=== PATIENT | male | born 1940 | race African-American/Black ===

== ENCOUNTER 2017-07-17 19:24 | Emergency (ER) | payer MEDICARE, OTHER ==
[~2017-07-17] VITALS: Ht 177.8 cm; Wt 59.0 kg
[~2017-07-17 19:24] MED LIST: ACETAMINOPHEN-H1 TA2 PO; ADULT LOW DOSE81 MG PO; AMITRIPTYLINE25 MG PO; ASPIRIN 325MG325 MG PO; BACLOFEN 10MG T10 MG PO; CARBIDOPA AND L1 TA1 PO; CARBIDOPA/LE1 TABLE2 PO; CELEBREX200 MG PO; CITALOPRAM HYDR10 MG PO; DIABETA5 MG PO; DICLOFENAC SODI75 M2 PO; DICLOFENAC SODI75 M3 PO; ELIQUIS5 MG PO; FAMVIR500 MG PO; FERROUS SULFAT325 M2 PO; FINASTERIDE5 M1 PO; FLOMAX 0.4MG C0.4 MG PO; GABAPENTIN 400400 M1 PO; GABAPENTIN 600600 MG PO; GABAPENTIN300 MG PO; HCTZ/TRIAMTEREN1 CAP PO; HYDROCHLOROTHIA25 M1 PO; IMODIUM A-D2 M3 PO; KCL 10% 2020 MEQ/15 NG; KCL 10% 2020 MEQ/15 PO; LASIX 20MG. TAB20 MG PO; LASIX20 MG PO; LEVEMIR FLEX100 U/ML SC; LIPITOR80 MG PO; LOTREL1 CAP PO; LOVENOX 12120 MG/0.8 SC; METFORMIN ER500 MG PO; METOPROLOL SUCC25 M1 PO; METOPROLOL SUCC25 M2 PO; NEURONTIN600 MG PO; NITROLINGU0.4 MG/ACT SL; NORCO 325 MG-51 TAB PO; OMEPRAZOLE40 MG PO; ONDANSETRON 4MG4 MG PO; PLAVIX75 MG PO; POTASSIUM CHLO20 ME2 PO; QUETIAPINE FUMA25 M1 PO; ROSUVASTATIN CA20 MG PO; SYNTHROID0.112 MG PO; TERAZOSIN5 MG PO; TRAMADOL 50MG T50 MG PO; TRIAMTERENE AND1 TAB PO; VESICARE5 MG PO; VICODIN 5/500 T1 TAB PO; VITAMIN B121000 MCG PO; VITAMIN B122500 MC1 PO; VITAMIN D1000 IU PO; [UNRECOGNIZED DRUG - CODE] PO
--- OUTSIDE RECORDS SUMMARY | 2017-07-17 19:52 | External Medical Summary Rpt | CCD ---
Author Author , [facility]IEZER Organization [facility]IE[facility]ER Address Unknown Phone [email or web address] Care Team Providers Care Critical Care Paramedic Name Role Phone Suzanne SIMON, Unavailable Unavailable Suzanne Gabriel MD, Unavailable Unavailable Adelfo Gabriel MD Purpose Continuity of Care Document - 05-09-2013 through 2016 Problems Code Diagnosis DOS Provider Status 244.9 Hypothyroid [facility] 272.4 Hyperlipide [facility] 276.8 Hypokalemia [facility] 288.8 Leukocytosi [facility] 401.1 Benign [place] [facility] hypertensio [facility] n [id number] Diabetes [place] mellitus [facility] type 2 [facility] [id number] Active [facility] 593.9 Renal [place] impairment [facility] 600.01 [facility]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 [facility] with outflow obstruction [id number] Chronic [facility] D64.9 ANEMIA, UNSPECIFIED 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 51 13 er 12 5 5 Ac MG ti ve TA BL ET OD T Po 00 08 2 No ta 24 -1 ss 50 4- Lo iu 05 20 ng m 80 13 er Ch 1 lo Ac ri ti de ve 20 ME Q Ta bl e PO 00 08 0 No TA 40 -1 SS 97 4- Lo IU 07 20 ng M 52 13 er CL 6 Ac 20 ti ve ME Q/ 10 0 ML SO L IN 00 08 2 No VA 00 -1 NZ 63 1- Lo 1 84 20 ng 57 13 er GM 1 Ac AD ti D- ve VA NT AG E AL SO 00 08 2 No DI 40 -1 UM 97 1- Lo 10 20 ng CH 16 13 er LO 6 RI Ac DE ti ve 0. 9% SO LN AM 51 08 5 No LO 07 -1 DI 90 1- Lo PI 45 20 ng NE 22 13 er 0 BE Ac SY ti LA ve TE 10 MG TA B LO 00 08 5 No VE 07 -1 NO 50 1- Lo X 62 20 ng 40 04 13 er 1 MG Ac /0 ti .4 ve ML SY RI NG E HY [address] 73 -1 OC 90 1- Lo HL 12 20 ng OR 81 13 er OT 0 HI Ac AZ ti ID ve E 25 MG TA B TO 00 08 5 No MT 18 -1 OL 61 1- Lo 08 20 ng XL 83 13 er 9 25 Ac ti MG ve TA BL ET IN 00 08 1 No VA 00 -1 NZ 63 0- Lo 1 84 20 ng 57 13 er GM 1 Ac AD ti D- ve VA NT AG E AL Mo 00 08 6 No rp 40 -1 hi 91 0- Lo ne 25 20 ng 83 13 er 4M 0 G/ Ac Ml ti ve Sy ri ng e FS 08 6 No -1 BL 0- Lo OO 20 ng D 13 er SOOD GA Ac R ti ve LA [address] 40 -1 AT 97 0- Lo ED 95 20 ng 30 13 er RI 9 NG Ac ER ti S ve IN JE CT IO N SO 00 08 6 No DI 40 -1 UM 97 0- Lo 98 20 ng CH 30 13 er LO 9 RI Ac DE ti ve 0. 9% SO DORIS TI ON AM 51 08 1 No LO 07 -0 DI 90 9- Lo PI 45 20 ng NE 22 13 er 0 BE Ac SY ti LA ve TE 10 MG TA B CE 00 08 1 No LE 02 -0 BR 51 9- Lo EX 52 20 ng 03 13 er 10 4 0 Ac MG ti ve CA PS UL E HY [address] 73 -0 OC 90 9- Lo HL 12 20 ng OR 81 13 er OT 0 HI Ac AZ ti ID ve E 25 MG TA B SY 00 08 1 No NT 07 -0 HR 49 9- Lo OI 29 20 ng D 69 13 er 11 0 2 Ac MC ti G ve TA BL ET TO 00 08 1 No MT 18 -0 OL 61 9- Lo 08 20 ng XL 83 13 er 9 25 Ac ti MG ve TA BL ET LO 00 08 1 No VE 07 -0 NO 50 9- Lo X 62 20 ng 40 04 13 er 1 MG Ac /0 ti .4 ve ML SY RI NG E FS 08 1 No -0 BL 9- Lo OO 20 ng D 13 er SOOD GA Ac R ti ve LA [address] 40 -0 AT 97 8- Lo ED 95 20 ng 30 13 er RI 9 NG Ac ER ti S ve IN JE CT IO N SO 00 08 2 No DI 40 -0 UM 97 8- Lo 98 20 ng CH 30 13 er LO 9 RI Ac DE ti ve 0. 9% SO DORIS TI ON Sa 63 08 1 No li 80 -0 ne 70 8- Lo 10 20 ng Fl 07 13 er us 5 h Ac 10 ti ML ve Sy ri ng e ON 00 08 0 No DA 64 -0 NS 16 8- Lo ET 08 20 ng RO 02 13 er N 5 HC Ac L ti 4 ve MG /2 ML AL Sa 63 08 1 No li 80 -0 ne 70 8- Lo 10 20 ng Fl 07 13 er us 5 h Ac 10 ti ML ve Sy ri ng e Mo 00 08 0 No rp 40 -0 hi 91 8- Lo ne 26 20 ng 06 13 er 8M 9 G/ Ac Ml ti ve Sy ri ng e Mo 00 08 0 No rp 40 -0 hi 91 8- Lo ne 26 20 ng 06 13 er 8M 9 G/ Ac Ml ti ve Sy ri ng e OX 00 08 0 No YC 40 -0 OD 60 8- Lo ON 51 20 ng E- 26 13 er AC 2 ET Ac AM ti IN ve OP HE N 5- 32 5 Mo 00 08 0 No rp 40 -0 hi 91 8- Lo ne 26 20 ng 06 13 er 8M 9 G/ Ac Ml ti ve Sy ri ng e Mo 00 08 0 No rp 40 -0 hi 91 8- Lo ne 25 20 ng 83 13 er 4M 0 G/ Ac Ml ti ve Sy ri ng e AM 51 08 2 No IT 07 -0 RI 90 8- Lo PT 10 20 ng YL 72 13 er IN 0 E Ac HC ti L ve 25 MG TA B LI 00 08 2 No PI 07 -0 TO 10 8- Lo R 15 20 ng 40 74 13 er 0 MG Ac ti TA ve BL ET Ga 68 08 2 No ba 08 -0 pe 40 8- Lo nt 08 20 ng in 00 13 er 1 30 Ac 0M ti G ve Ca ps ul e TA 51 08 2 No MS 07 -0 UL 90 8- Lo OS 29 20 ng IN 42 13 er 0 HC Ac L ti 0. ve 4 MG CA PS UL E TE 51 08 2 No RA 07 -0 ZO 90 8- Lo SI 93 20 ng N 82 13 er 5 0 MG Ac ti CA ve PS UL E HY [address] 40 -0 OM 91 8- Lo OR 31 20 ng PH 23 13 er ON 0 E Ac 2 ti MG ve /M L CA RP UJ CT Vital Signs 05-17-2013 12:36 Name Value Interpretat Reference Comment ion Range Body 98.0 [degF] Temperature BP 68 mm[Hg] Diastolic BP Systolic 118 mm[Hg] Heart 80 /min Rate/Pulse Respiratory 18 /min Rate 05-17-2013 08:00 Name Value Interpretat Reference Comment ion Range O2% 96 % 05-11-2013 15:32 Name Value Interpretat Reference Comment ion Range Weight 85.843 kg Measured 05-09-2013 19:03 Name Value Interpretat Reference Comment ion Range Height 180.34 cm 05-09-2013 15:15 Name Value Interpretat Reference Comment ion Range Body 97.8 [degF] Temperature BP 67 mm[Hg] Diastolic BP Systolic 150 mm[Hg] Heart 58 /min Rate/Pulse O2% 100 % Respiratory 18 /min Rate Weight 0 [oz_av] Measured Results Labs Lab Lab Date Result Refere Interp Status Commen Order Detail nces retati t Range on Differential panel, method unspecified - (03-20-2017 13:45) LYMPH 34 % 10% - Normal complet 017 50% ed 13:45 Platele NORMAL complet ts 017 ed [Presen 13:45 ce] in Blood by Light microsc opy Erythro NORMAL complet cyte 017 ed morphol 13:45 ogy finding [Identi fier] in Blood Hemoglobin A1c in Blood (03-20-2017 13:45) Hemoglo 5.1 % 0.0% Normal complet bin A1c 017 - ed in 13:45 7.0% Blood Glucose BldC Glucomtr-mCnc (05-17-2013 06:45) Glucose 106 70-110 complet BldC 013 mg/dl ed Glucomt 06:45 r-mCnc Glucose BldC Glucomtr-mCnc (05-16-2013 20:32) Glucose 129 70-110 complet BldC 013 mg/dl ed Glucomt 20:32 r-mCnc Glucose BldC Glucomtr-mCnc (05-16-2013 16:41) Glucose 111 70-110 complet BldC 013 mg/dl ed Glucomt 16:41 r-mCnc Glucose BldC Glucomtr-mCnc (05-16-2013 11:30) Glucose 96 70-110 complet BldC 013 mg/dl ed Glucomt 11:30 r-mCnc Glucose BldC Glucomtr-nc (05-16-2013 06:54) Glucose 101 70-110 complet BldC 013 mg/dl ed Glucomt 06:54 r-mCnc BASIC METABOLIC PANEL (05-16-2013 06:46) Glucose 103 74-106 complet 013 mg/dL ed Bld-mCn 06:46 c BUN 15 7-18 complet Bld-mCn 013 mg/dL ed c 06:46 Creat 1.0 0.8-1.3 complet SerPl-m 013 mg/dL ed Cnc 06:46 ESTIMAT 82 50-200 complet ED 013 ML/MIN ed CREATIN 06:46 INE CLEARAN CE GFR 74 Greater complet (ESTIMA 013 ML/MIN than ed NYA) 06:46 60 Sodium 140 136-145 complet SerPl-s 013 mmoL/L ed Cnc 06:46 Potassi 3.7 3.5-5.1 complet um 013 mmoL/L ed SerPl-s 06:46 Cnc Chlorid 103 98-107 complet e 013 mmoL/L ed SerPl-s 06:46 Cnc CO2 34 21.0-32 complet SerPl-s 013 mmoL/L .0 ed Cnc 06:46 Calcium 08-15-2 7.9 8.5-10. complet 013 mg/dL 1 ed SerPl-m 06:46 Cnc CBC with AUTO DIFF (05-16-2013 06:46) WBC # 08-15-2 6.4 4.8-10. complet Bld 013 K/MM3 8 ed Auto 06:46 RBC # 08-15-2 3.44 4.6-6.2 complet Bld 013 M/mm3 ed Auto 06:46 Hgb 08-15-2 10.7 14.1-18 complet Bld-mCn 013 g/dL .0 ed c 06:46 Hct Fr 08-15-2 32.0 % 42.0-52 complet Bld 013 .0 ed 06:46 MCV RBC 08-15-2 93.1 fl 82.2-97 complet 013 .8 ed 06:46 MCH RBC 08-15-2 31.0 pg 27-31.2 complet Qn 013 ed Auto 06:46 MEAN 08-15-2 33.3 31.8-35 complet CORPUSC 013 g/dl .4 ed ULAR 06:46 HGB CONC RDW RBC 08-15-2 14.8 % 11.5-17 complet Auto 013 .5 ed 06:46 Platele 08-15-2 208 142-424 complet t Bld 013 K/mm3 ed Ql 06:46 Manual MEAN 08-15-2 8.0 fl 7.4-10. complet PLATELE 013 4 ed T 06:46 VOLUME Granulo 08-15-2 71.6 % 37.0-80 complet cytes 013 .0 ed Fr Bld 06:46 Auto LYMPH % 08-15-2 19.0 % 10-50 complet 013 ed 06:46 Monocyt 08-15-2 7.1 % 1.7-9.3 complet es Fr 013 ed Bld 06:46 Auto Eosinop 08-15-2 2.1 % 0.1-12. complet hil Fr 013 0 ed Bld 06:46 Auto Basophi 08-15-2 0.3 % 0.1-2.0 complet ls Fr 013 ed Bld 06:46 Auto Granulo 08-15-2 4.5 1.3-8.0 complet cytes # 013 K/mm3 ed Bld 06:46 Auto Lymphoc 05-16-2 1.2 0.7-4.5 complet ytes Fr 013 K/mm3 ed Bld 06:46 Auto Monocyt 15-2 0.5 0.1-1.0 complet es # 013 K/mm3 ed Bld 06:46 Auto Eosinop 15-2 0.1 0.0-0.4 complet hil # 013 K/mm3 ed Bld 06:46 Auto Basophi 05-16-2 0.0 0-0.2 complet ls # 013 K/MM3 ed Bld 06:46 Auto Glucose BldC Glucomtr-mCnc (05-15-2013 21:25) Glucose 05-15-2 127 70-110 complet BldC 013 mg/dl ed Glucomt 21:25 r-mCnc Glucose BldC Glucomtr-nc (05-15-2013 16:50) Glucose 05-15- 122 70-110 complet BldC 013 mg/dl ed Glucomt 16:50 r-mCnc Glucose BldC Glucomtr-nc (05-15-2013 12:15) Glucose 05-15-2 151 70-110 complet BldC 013 mg/dl ed Glucomt 12:15 r-mCnc Glucose BldC Glucomtr-mCnc (05-15-2013 06:26) Glucose 05-15-2 102 70-110 complet BldC 013 mg/dl ed Glucomt 06:26 r-nc BASIC METABOLIC PANEL (05-15-2013 06:20) Glucose 05-15-2 110 74-106 complet 013 mg/dL ed Bld-mCn 06:20 c BUN 19 7-18 complet Bld-mCn 013 mg/dL ed c 06:20 Creat 1.1 0.8-1.3 complet SerPl-m 013 mg/dL ed Cnc 06:20 ESTIMAT 75 50-200 complet ED 013 ML/MIN ed CREATIN 06:20 INE CLEARAN CE GFR 66 Greater complet (ESTIMA 013 ML/MIN than ed NYA) 06:20 60 Sodium 141 136-145 complet SerPl-s 013 mmoL/L ed Cnc 06:20 Potassi 3.0 3.5-5.1 complet um 013 mmoL/L ed SerPl-s 06:20 Cnc Chlorid 14-2 103 98-107 complet e 013 mmoL/L ed SerPl-s 06:20 Cnc CO2 14-2 32 21.0-32 complet SerPl-s 013 mmoL/L .0 ed Cnc 06:20 Calcium 14-2 8.0 8.5-10. complet 013 mg/dL 1 ed SerPl-m 06:20 Cnc CBC with AUTO DIFF (05-15-2013 06:20) WBC # 08-14-2 8.2 4.8-10. complet Bld 013 K/MM3 8 ed Auto 06:20 RBC # 08-14-2 3.65 4.6-6.2 complet Bld 013 M/mm3 ed Auto 06:20 Hgb -14-2 11.1 14.1-18 complet Bld-mCn 013 g/dL .0 ed c 06:20 Hct Fr 05-15-2 33.5 % 42.0-52 complet Bld 013 .0 ed 06:20 MCV RBC 05-15-2 91.8 fl 82.2-97 complet 013 .8 ed 06:20 MCH RBC 14-2 30.4 pg 27-31.2 complet Qn 013 ed Auto 06:20 MEAN 14-2 33.1 31.8-35 complet CORPUSC 013 g/dl .4 ed ULAR 06:20 HGB CONC RDW RBC 05-15-2 14.2 % 11.5-17 complet Auto 013 .5 ed 06:20 Platele 05-15-2 215 142-424 complet t Bld 013 K/mm3 ed Ql 06:20 Manual MEAN 14-2 8.2 fl 7.4-10. complet PLATELE 013 4 ed T 06:20 VOLUME Granulo -14-2 77.6 % 37.0-80 complet cytes 013 .0 ed Fr Bld 06:20 Auto LYMPH % -14-2 12.3 % 10-50 complet 013 ed 06:20 Monocyt -14-2 9.0 % 1.7-9.3 complet es Fr 013 ed Bld 06:20 Auto Eosinop -14-2 0.9 % 0.1-12. complet hil Fr 013 0 ed Bld 06:20 Auto Basophi 08-14-2 0.2 % 0.1-2.0 complet ls Fr 013 ed Bld 06:20 Auto Granulo 08-14-2 6.4 1.3-8.0 complet cytes # 013 K/mm3 ed Bld 06:20 Auto Lymphoc 08-14-2 1.0 0.7-4.5 complet ytes Fr 013 K/mm3 ed Bld 06:20 Auto Monocyt 08-14-2 0.7 0.1-1.0 complet es # 013 K/mm3 ed Bld 06:20 Auto Eosinop 08-14-2 0.1 0.0-0.4 complet hil # 013 K/mm3 ed Bld 06:20 Auto Basophi 08-14-2 0.0 0-0.2 complet ls # 013 K/MM3 ed Bld 06:20 Auto Glucose BldC Glucomtr-nc (05-14-2013 20:33) Glucose 05-14-2 150 70-110 complet BldC 013 mg/dl ed Glucomt 20:33 r-mCnc Glucose BldC Glucomtr-nc (05-14-2013 16:31) Glucose 154 70-110 complet BldC 013 mg/dl ed Glucomt 16:31 r-mCnc Glucose BldC Glucomtr-[facility] (05-14-2013 11:53) Glucose 05-14-2 126 70-110 complet BldC 013 mg/dl ed Glucomt 11:53 r-mCnc Glucose BldC Glucomtr-[facility] (05-14-2013 06:59) Glucose 05-14-2 114 70-110 complet BldC 013 mg/dl ed Glucomt 06:59 r-mCnc Glucose BldC Glucomtr-nc (05-13-2013 20:31) Glucose 05-13- 71 70-110 complet BldC 013 mg/dl ed Glucomt 20:31 r-mCnc Glucose BldC Glucomtr-nc (05-13-2013 16:52) Glucose 05-13-2 89 70-110 complet BldC 013 mg/dl ed Glucomt 16:52 r-mCnc Glucose BldC Glucomtr-[facility] (05-13-2013 11:45) Glucose 05-13-2 99 70-110 complet BldC 013 mg/dl ed Glucomt 11:45 r-nc Glucose BldC Glucomtr-nc (05-13-2013 06:38) Glucose 98 70-110 complet BldC 013 mg/dl ed Glucomt 06:38 r-nc Glucose BldC Glucomtr-nc (05-12-2013 20:23) Glucose 111 70-110 complet BldC 013 mg/dl ed Glucomt 20:23 r-nc Glucose BldC Glucomtr-nc (05-12-2013 16:36) Glucose 118 70-110 complet BldC 013 mg/dl ed Glucomt 16:36 r-[facility] Glucose BldC Glucomtr-[facility] (05-12-2013 11:50) Glucose 152 70-110 complet BldC 013 mg/dl ed Glucomt 11:50 r-[facility] Glucose BldC Glucomtr-[facility] (05-12-2013 06:52) Glucose 183 70-110 complet BldC 013 mg/dl ed Glucomt 06:52 r-[facility] BASIC METABOLIC PANEL (05-12-2013 06:30) Glucose 184 74-106 complet 013 mg/dL ed Bld-mCn 06:30 c BUN 25 7-18 complet Bld-mCn 013 mg/dL ed c 06:30 Creat 1.3 0.8-1.3 complet SerPl-m 013 mg/dL ed Cnc 06:30 ESTIMAT 63 50-200 complet ED 013 ML/MIN ed CREATIN 06:30 INE CLEARAN CE GFR 54 Greater complet (ESTIMA 013 ML/MIN than ed NYA) 06:30 60 Sodium 138 136-145 complet SerPl-s 013 mmoL/L ed Cnc 06:30 Potassi 3.7 3.5-5.1 complet um 013 mmoL/L ed SerPl-s 06:30 Cnc Chlorid 104 98-107 complet e 013 mmoL/L ed SerPl-s 06:30 Cnc CO2 27 21.0-32 complet SerPl-s 013 mmoL/L .0 ed Cnc 06:30 Calcium 08-11-2 7.9 8.5-10. complet 013 mg/dL 1 ed SerPl-m 06:30 Cnc CBC with AUTO DIFF (05-12-2013 06:30) WBC # 08-11-2 11.0 4.8-10. complet Bld 013 K/MM3 8 ed Auto 06:30 RBC # 08-11-2 3.74 4.6-6.2 complet Bld 013 M/mm3 ed Auto 06:30 Hgb 08-11-2 11.4 14.1-18 complet Bld-mCn 013 g/dL .0 ed c 06:30 Hct Fr 11-2 34.4 % 42.0-52 complet Bld 013 .0 ed 06:30 MCV RBC -11-2 92.0 fl 82.2-97 complet 013 .8 ed 06:30 MCH RBC 11-2 30.5 pg 27-31.2 complet Qn 013 ed Auto 06:30 MEAN 11-2 33.2 31.8-35 complet CORPUSC 013 g/dl .4 ed ULAR 06:30 HGB CONC RDW RBC 11-2 13.9 % 11.5-17 complet Auto 013 .5 ed 06:30 Platele -11-2 119 142-424 complet t Bld 013 K/mm3 ed Ql 06:30 Manual MEAN 11-2 9.2 fl 7.4-10. complet PLATELE 013 4 ed T 06:30 VOLUME Granulo -11-2 86.8 % 37.0-80 complet cytes 013 .0 ed Fr Bld 06:30 Auto LYMPH % -11-2 6.0 % 10-50 complet 013 ed 06:30 Monocyt 08-11-2 7.1 % 1.7-9.3 complet es Fr 013 ed Bld 06:30 Auto Eosinop 08-11-2 0.0 % 0.1-12. complet hil Fr 013 0 ed Bld 06:30 Auto Basophi 08-11-2 0.0 % 0.1-2.0 complet ls Fr 013 ed Bld 06:30 Auto Granulo 08-11-2 9.6 1.3-8.0 complet cytes # 013 K/mm3 ed Bld 06:30 Auto Lymphoc 08-11-2 0.7 0.7-4.5 complet ytes Fr 013 K/mm3 ed Bld 06:30 Auto Monocyt 0.8 0.1-1.0 complet es # 013 K/mm3 ed Bld 06:30 Auto Eosinop 0.0 0.0-0.4 complet hil # 013 K/mm3 ed Bld 06:30 Auto Basophi 0.0 0-0.2 complet ls # 013 K/MM3 ed Bld 06:30 Auto Glucose BldC Glucomtr-mCnc (05-11-2013 20:13) Glucose 175 70-110 complet BldC 013 mg/dl ed Glucomt 20:13 r-mCnc Glucose BldC Glucomtr-mCnc (05-11-2013 12:20) Glucose 198 70-110 complet BldC 013 mg/dl ed Glucomt 12:20 r-mCnc Glucose BldC Glucomtr-mCnc (05-11-2013 06:09) Glucose 165 70-110 complet BldC 013 mg/dl ed Glucomt 06:09 r-mCnc BASIC METABOLIC PANEL (05-11-2013 06:00) Glucose 178 74-106 complet 013 mg/dL ed Bld-mCn 06:00 c BUN 26 7-18 complet Bld-mCn 013 mg/dL ed c 06:00 Creat 1.4 0.8-1.3 complet SerPl-m 013 mg/dL ed Cnc 06:00 ESTIMAT 59 50-200 complet ED 013 ML/MIN ed CREATIN 06:00 INE CLEARAN CE GFR 50 Greater complet (ESTIMA 013 ML/MIN than ed NYA) 06:00 60 Sodium 135 136-145 complet SerPl-s 013 mmoL/L ed Cnc 06:00 Potassi 4.7 3.5-5.1 complet um 013 mmoL/L ed SerPl-s 06:00 Cnc Chlorid 99 98-107 complet e 013 mmoL/L ed SerPl-s 06:00 Cnc CO2 24 21.0-32 complet SerPl-s 013 mmoL/L .0 ed Cnc 06:00 Calcium -10-2 8.6 8.5-10. complet 013 mg/dL 1 ed SerPl-m 06:00 Cnc CBC with AUTO DIFF (05-11-2013 06:00) WBC # 08-10-2 16.7 4.8-10. complet Bld 013 K/MM3 8 ed Auto 06:00 RBC # 08-10-2 5.02 4.6-6.2 complet Bld 013 M/mm3 ed Auto 06:00 Hgb -10-2 15.6 14.1-18 complet Bld-mCn 013 g/dL .0 ed c 06:00 Hct Fr 05-11-2 46.1 % 42.0-52 complet Bld 013 .0 ed 06:00 MCV RBC 10-2 91.7 fl 82.2-97 complet 013 .8 ed 06:00 MCH RBC 05-11- 31.2 pg 27-31.2 complet Qn 013 ed Auto 06:00 MEAN 05-11-2 34.0 31.8-35 complet CORPUSC 013 g/dl .4 ed ULAR 06:00 HGB CONC RDW RBC 05-11-2 14.0 % 11.5-17 complet Auto 013 .5 ed 06:00 Platele 05-11-2 148 142-424 complet t Bld 013 K/mm3 ed Ql 06:00 Manual MEAN 05-11-2 8.5 fl 7.4-10. complet PLATELE 013 4 ed T 06:00 VOLUME Granulo 10-2 88.2 % 37.0-80 complet cytes 013 .0 ed Fr Bld 06:00 Auto LYMPH % 10-2 3.7 % 10-50 complet 013 ed 06:00 Monocyt -10-2 7.7 % 1.7-9.3 complet es Fr 013 ed Bld 06:00 Auto Eosinop -10-2 0.1 % 0.1-12. complet hil Fr 013 0 ed Bld 06:00 Auto Basophi 08-10-2 0.2 % 0.1-2.0 complet ls Fr 013 ed Bld 06:00 Auto Granulo -10-2 14.8 1.3-8.0 complet cytes # 013 K/mm3 ed Bld 06:00 Auto Lymphoc 08-10-2 0.6 0.7-4.5 complet ytes Fr 013 K/mm3 ed Bld 06:00 Auto Monocyt 1.3 0.1-1.0 complet es # 013 K/mm3 ed Bld 06:00 Auto Eosinop 0.0 0.0-0.4 complet hil # 013 K/mm3 ed Bld 06:00 Auto Basophi 0.0 0-0.2 complet ls # 013 K/MM3 ed Bld 06:00 Auto Glucose BldC Glucomtr-mCnc (05-10-2013 20:15) Glucose 150 70-110 complet BldC 013 mg/dl ed Glucomt 20:15 r-mCnc Glucose BldC Glucomtr-mCnc (05-10-2013 17:03) Glucose 156 70-110 complet BldC 013 mg/dl ed Glucomt 17:03 r-mCnc Glucose BldC Glucomtr-mCnc (05-10-2013 12:07) Glucose 192 70-110 complet BldC 013 mg/dl ed Glucomt 12:07 r-mCnc PROTIME/INR (05-10-2013 08:30) PROTHRO 11.1 9.9-11. complet MBIN 013 SECONDS 6 ed TIME 08:30 INR Bld 1.04 0.9-1.1 complet 013 UNK ed 08:30 ACT PARTIAL THROMBO TIME (05-10-2013 08:30) ACT 27.5 25.3-32 complet PARTIAL 013 SECONDS .0 ed 08:30 THROMBO TIME COMPREHENSIVE METABOLIC PANEL (05-10-2013 07:50) Glucose 170 74-106 complet 013 mg/dL ed Bld-mCn 07:50 c BUN 19 7-18 complet Bld-mCn 013 mg/dL ed c 07:50 Creat 1.2 0.8-1.3 complet SerPl-m 013 mg/dL ed Cnc 07:50 ESTIMAT 69 50-200 complet ED 013 ML/MIN ed CREATIN 07:50 INE CLEARAN CE GFR 60 Greater complet (ESTIMA 013 ML/MIN than ed NYA) 07:50 60 Sodium 137 136-145 complet SerPl-s 013 mmoL/L ed Cnc 07:50 Potassi 4.8 3.5-5.1 complet um 013 mmoL/L ed SerPl-s 07:50 Cnc Chlorid 100 98-107 complet e 013 mmoL/L ed SerPl-s 07:50 Cnc CO2 27 21.0-32 complet SerPl-s 013 mmoL/L .0 ed Cnc 07:50 Calcium 8.5 8.5-10. complet 013 mg/dL 1 ed SerPl-m 07:50 Cnc Prot 6.7 6.4-8.2 complet SerPl-m 013 gm/dL ed Cnc 07:50 Albumin 3.5 3.4-5.0 complet 013 gm/dL ed SerPl-m 07:50 Cnc Globuli 3.2 1.3-3.2 complet n 013 gm/dL ed Ser-mCn 07:50 c Albumin 1.1 UNK 1.1-1.8 complet /Glob 013 ed SerPl-m 07:50 Rto Bilirub 1.0 0.2-1.0 complet 013 mg/dL ed SerPl-m 07:50 Cnc AST 16 U/L 15-37 complet SerPl-c 013 ed Cnc 07:50 ALT 51 U/L 30-65 complet SerPl-c 013 ed Cnc 07:50 ALP 214 U/L 50-136 complet SerPl-c 013 ed Cnc 07:50 CBC with AUTO DIFF (05-10-2013 07:50) WBC # 09-2 11.0 4.8-10. complet Bld 013 K/MM3 8 ed Auto 07:50 RBC # 09-2 5.24 4.6-6.2 complet Bld 013 M/mm3 ed Auto 07:50 Hgb 16.0 14.1-18 complet Bld-mCn 013 g/dL .0 ed c 07:50 Hct Fr 48.4 % 42.0-52 complet Bld 013 .0 ed 07:50 MCV RBC 08-09-2 92.5 fl 82.2-97 complet 013 .8 ed 07:50 MCH RBC 08-09-2 30.6 pg 27-31.2 complet Qn 013 ed Auto 07:50 MEAN 08-09-2 33.0 31.8-35 complet CORPUSC 013 g/dl .4 ed ULAR 07:50 HGB CONC RDW RBC 09-2 13.7 % 11.5-17 complet Auto 013 .5 ed 07:50 Platele 08-09-2 155 142-424 complet t Bld 013 K/mm3 ed Ql 07:50 Manual MEAN 0809-2 8.1 fl 7.4-10. complet PLATELE 013 4 ed T 07:50 VOLUME Granulo -09-2 89.8 % 37.0-80 complet cytes 013 .0 ed Fr Bld 07:50 Auto LYMPH % 08-09-2 4.3 % 10-50 complet 013 ed 07:50 Monocyt 08-09-2 5.1 % 1.7-9.3 complet es Fr 013 ed Bld 07:50 Auto Eosinop 08-09-2 0.6 % 0.1-12. complet hil Fr 013 0 ed Bld 07:50 Auto Basophi 08-09-2 0.3 % 0.1-2.0 complet ls Fr 013 ed Bld 07:50 Auto Granulo 08-09-2 9.9 1.3-8.0 complet cytes # 013 K/mm3 ed Bld 07:50 Auto Lymphoc 08-09-2 0.5 0.7-4.5 complet ytes Fr 013 K/mm3 ed Bld 07:50 Auto Monocyt 08-09-2 0.6 0.1-1.0 complet es # 013 K/mm3 ed Bld 07:50 Auto Eosinop 08-09-2 0.1 0.0-0.4 complet hil # 013 K/mm3 ed Bld 07:50 Auto Basophi 08-09-2 0.0 0-0.2 complet ls # 013 K/MM3 ed Bld 07:50 Auto Glucose BldC [facility]com[facility] (05-10-2013 06:27) Glucose 08-09-2 154 70-110 complet BldC 013 mg/dl ed Glucomt 06:27 r-mCnc URINALYSIS/COMPLETE (05-09-2013 15:50) URINE 08-2 YELLOW YELLOW complet COLOR 013 ed 15:50 URINE 08-2 CLEAR CLEAR complet APPEARA 013 ed NCE 15:50 URINE 08-2 NEGATIV NEG complet GLUCOSE 013 E ed - 15:50 DIPSTIC K URINE 08-2 NEGATIV NEG complet BILIRUB 013 E ed IN - 15:50 DIPSTIC K URINE 05-09-2 NEGATIV NEG complet KETONE 013 E mg/dL ed 15:50 URINE 05-09-2 1.020 1.005-1 complet SPECIFI 013 UNK .030 ed C 15:50 GRAVITY URINE 05-09-2 TRACE-I NEG complet BLOOD 013 NTACT ed 15:50 URINE 05-09-2 6.0 UNK 5.0-8.5 complet PH 013 ed 15:50 URINE 05-09-2 NEGATIV NEG complet PROTEIN 013 E mg/dL ed - 15:50 DIPSTIC K URINE 05-09-2 1.0 NEG complet UROBILI 013 E.U./dL ed NOGEN - 15:50 DIPSTIC K URINE 08-2 NEGATIV NEG complet NITRATE 013 E ed - 15:50 DIPSTIC K URINE 08-2 NEGATIV NEG complet LEUK 013 E ed ESTERAS 15:50 E URINE 05-09-2 5-10 0 complet RBC 013 rbc/hpf ed 15:50 URINE 08-2 OCC O complet WBC 013 wbc/hpf ed 15:50 URINE 05-09-2 OCC OCC complet SQUAMOU 013 #/hpf ed S CELLS 15:50 URINE 05-09-2 TRACE O complet BACTERI 013 ed A 15:50 COMPREHENSIVE METABOLIC PANEL (05-09-2013 15:05) Glucose 05-09- 144 74-106 complet 013 mg/dL ed Bld-mCn 15:05 c BUN 05-09- 20 7-18 complet Bld-mCn 013 mg/dL ed c 15:05 Creat 2 1.4 0.8-1.3 complet SerPl-m 013 mg/dL ed Cnc 15:05 ESTIMAT 53 50-200 complet ED 013 ML/MIN ed CREATIN 15:05 INE CLEARAN CE GFR 08-08-2 50 Greater complet (ESTIMA 013 ML/MIN than ed NYA) 15:05 60 Sodium 139 136-145 complet SerPl-s 013 mmoL/L ed Cnc 15:05 Potassi 3.8 3.5-5.1 complet um 013 mmoL/L ed SerPl-s 15:05 Cnc Chlorid 103 98-107 complet e 013 mmoL/L ed SerPl-s 15:05 Cnc CO2 26 21.0-32 complet SerPl-s 013 mmoL/L .0 ed Cnc 15:05 Calcium 8.5 8.5-10. complet 013 mg/dL 1 ed SerPl-m 15:05 Cnc Prot 6.4 6.4-8.2 complet SerPl-m 013 gm/dL ed Cnc 15:05 Albumin 3.5 3.4-5.0 complet 013 gm/dL ed SerPl-m 15:05 Cnc Globuli 2.9 1.3-3.2 complet n 013 gm/dL ed Ser-mCn 15:05 c Albumin 1.2 UNK 1.1-1.8 complet /Glob 013 ed SerPl-m 15:05 Rto Bilirub 0.8 0.2-1.0 complet 013 mg/dL ed SerPl-m 15:05 Cnc AST 16 U/L 15-37 complet SerPl-c 013 ed Cnc 15:05 ALT 54 U/L 30-65 complet SerPl-c 013 ed Cnc 15:05 ALP 187 U/L 50-136 complet SerPl-c 013 ed Cnc 15:05 CBC with AUTO DIFF (05-09-2013 15:05) WBC # 08-2 6.1 4.8-10. complet Bld 013 K/MM3 8 ed Auto 15:05 RBC # 08-2 4.78 4.6-6.2 complet Bld 013 M/mm3 ed Auto 15:05 Hgb 14.7 14.1-18 complet Bld-mCn 013 g/dL .0 ed c 15:05 Hct Fr 08-08-2 44.2 % 42.0-52 complet Bld 013 .0 ed 15:05 MCV RBC 08-2 92.5 fl 82.2-97 complet 013 .8 ed 15:05 MCH RBC 08-2 30.7 pg 27-31.2 complet Qn 013 ed Auto 15:05 MEAN 08-2 33.2 31.8-35 complet CORPUSC 013 g/dl .4 ed ULAR 15:05 HGB CONC RDW RBC 08-2 14.3 % 11.5-17 complet Auto 013 .5 ed 15:05 Platele 08-2 173 142-424 complet t Bld 013 K/mm3 ed Ql 15:05 Manual MEAN 08-2 8.3 fl 7.4-10. complet PLATELE 013 4 ed T 15:05 VOLUME Granulo 08-2 45.7 % 37.0-80 complet cytes 013 .0 ed Fr Bld 15:05 Auto LYMPH % 08-2 43.6 % 10-50 complet 013 ed 15:05 Monocyt 08-2 7.7 % 1.7-9.3 complet es Fr 013 ed Bld 15:05 Auto Eosinop -08-2 2.4 % 0.1-12. complet hil Fr 013 0 ed Bld 15:05 Auto Basophi -08-2 0.5 % 0.1-2.0 complet ls Fr 013 ed Bld 15:05 Auto Granulo -08-2 2.8 1.3-8.0 complet cytes # 013 K/mm3 ed Bld 15:05 Auto Lymphoc -08-2 2.6 0.7-4.5 complet ytes Fr 013 K/mm3 ed Bld 15:05 Auto Monocyt 08-08-2 0.5 0.1-1.0 complet es # 013 K/mm3 ed Bld 15:05 Auto Eosinop 08-08-2 0.2 0.0-0.4 complet hil # 013 K/mm3 ed Bld 15:05 Auto Basophi 08-08-2 0.0 0-0.2 complet ls # 013 K/MM3 ed Bld 15:05 Auto Procedures Procedure DOS Code Location Performer Comment ING 53.05 Adelfo HERNIA [place] REP-GRAFT NOS PART SM 45.62 Adelfo BYRD MD NEC Encounters Encounter Start End Date Code Location Performer Type Date Inpatient DELMY [place] ([place]) 3 16:08 3 13:00 [facility]
--- OUTSIDE RECORDS SUMMARY | 2017-07-17 19:52 | External Medical Summary Rpt | CCD ---
Author Author , ELIEZER Organization ELIEZER Address Unknown Phone [email or web address] Providers Care Facilities Maintenance Supervisor Name Role Phone Suzanne SIMON, Unavailable Unavailable Suzanne Gabriel MD, Unavailable Unavailable Adelfo Gabriel MD Purpose Continuity of Care Document - 05-09-2013 through 2016 Problems Code Diagnosis DOS Provider Status 244.9 Hypothyroid [facility] 272.4 Hyperlipide [facility] 276.8 Hypokalemia [facility] 288.8 Leukocytosi [facility] 401.1 Benign Hagerman essential [facility] hypertensio [facility] n [id number] Diabetes Hagerman mellitus [facility] type 2 [facility] [id number] Active [facility] 593.[address] [facility] 600.01 [facility] prostatic [facility] with outflow obstruction [id number] Chronic [facility] D64.9 ANEMIA, UNSPECIFIED E11.22 TYPE 2 [...] TA B TO 00 08 5 No MI 18 -1 OL 61 1- Lo 08 [...] BL ET TO 00 08 1 No MI 18 -0 OL 61 9- Lo 08 [...] mg/dl ed Glucomt 16:31 r-mCnc Glucose BldC [facility]com[facility] (05-14-2013 11:53) Glucose 05-14-2 126 70-110 complet BldC 013 mg/dl ed Glucomt 11:53 r-mCnc Glucose BldC [facility] (05-14-2013 06:59) Glucose 05-14-2 114 70-110 complet BldC 013 mg/dl ed Glucomt 06:59 r-mCnc Glucose BldC Glucomtr-nc (05-13-2013 20:31) Glucose 05-13- 71 70-110 complet BldC 013 mg/dl ed Glucomt 20:31 r-mCnc Glucose BldC Glucomtr-nc (05-13-2013 16:52) Glucose 05-13-2 89 70-110 complet BldC 013 mg/dl ed Glucomt 16:52 r-mCnc Glucose BldC [facility] (05-13-2013 11:45) Glucose 05-13-2 99 70-110 complet BldC 013 mg/dl ed Glucomt 11:45 r-nc Glucose BldC Glucomtr-nc (05-13-2013 06:38) Glucose 98 70-110 complet BldC 013 mg/dl ed Glucomt 06:38 r-nc Glucose BldC Glucomtr-nc (05-12-2013 20:23) Glucose 111 70-110 complet BldC 013 mg/dl ed Glucomt 20:23 r-nc Glucose BldC Glucomtr-nc (05-12-2013 16:36) Glucose 118 70-110 complet BldC 013 mg/dl ed Glucomt 16:36 r-[facility] Glucose BldC [facility] (05-12-2013 11:50) Glucose 152 70-110 complet BldC 013 mg/dl ed Glucomt 11:50 r-[facility] Glucose BldC [facility] (05-12-2013 06:52) Glucose 183 70-110 complet BldC 013 mg/dl ed Glucomt 06:52 r-[facility] BASIC METABOLIC PANEL (05-12-2013 06:30) Glucose [...] K/MM3 ed Bld 07:50 Auto [facility] 06:27[facility] Glucose 08-09-2 154 70-110 complet [...] DELMY Watson ([place]) 3 16:08 3 13:00 [facility]
--- OUTSIDE RECORDS SUMMARY | 2017-07-17 19:53 | External Medical Summary Rpt | CCD ---
Author Author [employer] Organization [employer] Address Unknown Phone Unavailable Purpose Continuity of Care Document - through 2016
--- OUTSIDE RECORDS SUMMARY | 2017-07-17 19:53 | External Medical Summary Rpt | CCD ---
Demographics Preferred Language Amharic Marital Status Unknown Bahai Affiliation Unknown Race Unknown Ethnic Group Unknown Author Author , ELIEZER MARTINS Address Unknown Phone Immunization No patient found.
--- OUTSIDE RECORDS SUMMARY | 2017-07-17 19:53 | External Medical Summary Rpt | CCD ---
Demographics Preferred Language Faroese Marital Status Unknown Jehovah'S Witness Affiliation Unknown Race Unknown Ethnic Group Unknown Author Author , ELIEZER MARTINS Address Unknown Phone Immunization No patient found.
--- OUTSIDE RECORDS SUMMARY | 2017-07-17 19:53 | External Medical Summary Rpt ---
Author Author SOULEYMANEASHWINI Doty, [employer]ER [employer] Organization [employer] Address Unknown Phone Unavailable Results Comprehensive metabolic 2000 panel in Serum or Plasma Observa Value Referen Units Interpr Notes Date tion ce etation Range Albumin/G 1.1 - 1.8 No Low No Mar 20 lobulin informati informati 2017 1:45 [Mass on in on in PM ratio] in source source Serum or data data Plasma Albumin 3.4 - 5.0 gm/dL Low No Mar 20 [Mass/vol informati 2017 1:45 ume] in on in PM Serum or source Plasma data Alkaline 46 - 116 U/L High No Mar 20 phosphata informati 2017 1:45 se on in PM [Enzymati source c data activity/ volume] in Serum or Plasma Bilirubin 0.2 - 1.0 mg/dL Normal No Mar 20 .total informati 2017 1:45 [Mass/vol on in PM ume] in source Serum or data Plasma Urea 7 - 18 mg/dL Normal No Mar 20 nitrogen informati 2017 1:45 [Mass/vol on in PM ume] in source Serum or data Plasma Calcium 8.5 - mg/dL Normal No Mar 20 [Mass/vol 10.1 informati 2017 1:45 ume] in on in PM Serum or source Plasma data Chloride 98 - 107 mmoL/L Normal No Mar 20 [Moles/vo informati 2017 1:45 lume] in on in PM Serum or source Plasma data Carbon 21.0 - mmoL/L Normal No Mar 20 dioxide, 32.0 informati 2017 1:45 total on in PM [Moles/vo source lume] in data Serum or Plasma Creatinin 0.70 - mg/dL Low No Mar 20 e 1.30 informati 2017 1:45 [Mass/vol on in PM ume] in source Serum or data Plasma Estimated >60 ML/MIN No REFERENCE Srinivasan 19 informati RANGE: 2017 1:45 glomerula on in >60 PM r source ML/MIN/1. filtratio data 73 SQUARE n rate METERSIf (GF this patient is -A merican, then multiply theresult by 1.210. Globulin 1.3 - 3.2 gm/dL Normal No Mar 20 [Mass/vol informati 2016 1:45 ume] in on in PM Serum source data Glucose 74 - 106 mg/dL High No Mar 20 [Mass/vol informati 2016 1:45 ume] in on in PM Serum or source Plasma data Potassium 3.5 - 5.1 mmoL/L Normal No Mar 202016 1:45 [Moles/vo on in PM lume] in source Serum or data Plasma Sodium 136 - 145 mmoL/L Normal No Mar 20 [Moles/vo informati 2016 1:45 lume] in on in PM Serum or source Plasma data Aspartate 15 - 37 U/L Low No Mar 20 inform2016 1:45 aminotran on in PM sferase source [Enzymati data c activity/ volume] in Serum or Plasma Alanine 12 - 78 U/L Normal No Mar 20 aminotran 2016 1:45 sferase on in PM [Enzymati source c data activity/ volume] in Serum or Plasma Protein 6.4 - 8.2 gm/dL Low No Mar 20 [Mass/vol informati 2016 1:45 ume] in on in PM Serum or source Plasma data CBC W Auto Differential panel in Blood Observa Value Referen Units Interpr Notes Date tion ce etation Range Basophils 0 - 0.2 K/MM3 Normal No Mar 202016 1:45 [#/volume on in PM ] in source Blood by data Automated count Basophils 0.1 - 2.0 % Normal No Mar 20 inform2016 1:45 leukocyte on in PM s in source Blood by data Automated count Eosinophi 0.0 - 0.4 K/mm3 Normal No Mar 20 ls ati 2016 1:45 [#/volume on in PM ] in source Blood by data Automated count Eosinophi 0.1 - % Normal No Mar 20 ls/100 12.0 informati 2016 1:45 leukocyte on in PM s in source Blood by data Automated count Granulocy 1.3 - 8.0 K/mm3 Normal No Mar 20 anisa informati 2016 1:45 [#/volume on in PM ] in source Blood by data Automated count Granulocy 37.0 - % Normal No Mar 20 anisa/100 80.0 informati 2016 1:45 leukocyte on in PM s in source Blood by data Automated count Hematocri 42.0 - % Low No Mar 20 t [Volume 52.0 informati 2017 1:45 on in PM Fraction] source of Blood data Hemoglobi 14.1 - g/dL Low No Mar 20 n 18.0 informati 2017 1:45 [Mass/vol on in PM ume] in source Blood data Lymphocyt 0.7 - 4.5 K/mm3 Normal No Mar 20 es informati 2016 1:45 [#/volume on in PM ] in source Unspecifi data ed specimen by Automated count Lymphocyt 10 - 50 % Normal No Mar 20 es informati 2017 1:45 [#/volume on in PM ] in source Unspecifi data ed specimen by Automated count Erythrocy 27 - 31.2 pg Normal No Mar 20 te mean informati 2016 1:45 corpuscul on in PM ar source hemoglobi data n [Entitic mass] Erythrocy 31.8 - g/dl Low No Mar 20 te mean 35.4 informati 2016 1:45 corpuscul on in PM ar source hemoglobi data n concentra tion [Mass/vol ume] by Automated count Erythrocy 82.2 - fl High No Mar 20 te mean 97.8 informati 2017 1:45 corpuscul on in PM ar volume source [Entitic data volume] by Automated count Monocytes 0.1 - 1.0 K/mm3 Normal No Mar 20 informati 2017 1:45 [#/volume on in PM ] in source Blood by data Automated count Monocytes 1.7 - 9.3 % Normal No Mar 19 /100 informati 2017 1:45 leukocyte on in PM s in source Blood by data Automated count Platelet 7.4 - fl Normal No Mar 20 mean 10.4 informati 2017 1:45 volume on in PM [Entitic source volume] data in Blood by Automated count Platelets 142 - 424 K/mm3 No No Mar 20 informati informati 2017 1:45 [#/volume on in on in PM ] in source source Blood data data Erythrocy 4.6 - 6.2 M/mm3 Low No Mar 20 anisa informati 2017 1:45 [#/volume on in PM ] in source Amniotic data fluid Erythrocy 11.5 - % Normal No Mar 20 te 17.5 informati 2017 1:45 distribut on in PM ion width source [Entitic data volume] by Automated count Leukocyte 4.8 - K/MM3 Low No Mar 20 s 10.8 informati 2017 1:45 [#/volume on in PM ] in source Blood data Differential panel, method unspecified - Observa Value Referen Units Interpr Notes Date tion ce etation Range Eosinophi 0 - 3 % High No Mar 20 ls/100 informati 2016 1:45 leukocyte on in PM s in source Blood by data Manual count LYMPH 34 10 - 50 % Normal No Mar 20 inform2016 tion in 1:45 PM source data Monocytes 2 - 9 % Normal No Mar 20 / informati 2016 1:45 leukocyte on in PM s in source Blood by data Automated count Platele NORMAL No No No No Mar 20 ts informa informa informa informa 2017 [Presen tion in tion in tion in tion in 1:45 PM ce] in source source source source Blood data data data data by Light microsc opy Neutrophi 42 - 76 % Normal No Mar 20 ls informati 2016 1:45 [#/volume on in PM ] in source Blood by data Automated count Erythro NORMAL No No No No Mar 20 cyte informa informa informa informa 2017 morphol tion in tion in tion in tion in 1:45 PM ogy source source source source finding data data data data [Identi fier] in Blood Cells No #CELLS No No Mar 20 Counted informati informati informati 2016 1:45 Total [#] on in on in on in PM in Blood source source source data data data Hemoglobin A1c in Blood Observa Value Referen Units Interpr Notes Date tion ce etation Range Hemoglo 5.1 0.0 - % Normal < 6% Mar 20 bin A1c 7.0 NON-RODOLFO 2017 in BETIC 1:45 PM Blood LEVEL< 7% CONTROL LED DIABETI C LEVEL> 8% POORLY CONTROL LED DIABETI C LEVEL
--- NOTE | 2017-07-17 20:00 | Emergency Room Report ---
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 Clinical Suspician of Infection? Mental Status: Sepsis Risk: Have you (or family members/close friends) recently traveled outside the [place]? If Yes, where/when: Have you had exposure to infectious disease within the past month? TB? Other? Specify: Source patient, RN notes reviewed, family, RN/MD Exam Limitations no limitations Comment This is a 76-year-old Afro-[place] gentleman brought to the emergency room by his daughter with concerns related to his tongue being sore and swollen, as well as his RIGHT buttock having a sore lump. The mother advised that patient has been biting his teeth during nighttime, and he has more than likely accidentally bit his tongue. He has a history of Parkinson, diabetes and he is currently on blood thinners (Eliquis). The mother advised that the patient's tongue has been "a lot worse over the weekend", but he has never developed any respiratory distress or trouble swallowing. His tongue appears to be smaller in size today, prior patient's daughter. ALLERGIES Coded Allergies: No Known Allergies (12/05/16) Home Medications Active Scripts Omeprazole (Omeprazole 40MG) 40 MG PO DAILY #30 ECC Prov: 12/08/16 Cyanocobalamin (Vitamin B-12) (Vitamin B12) 2,500 MCG PO DAILY #30 TAB Prov: 12/08/16 Tramadol Hcl (Tramadol 50MG) 50 MG PO Q4HP PRN MODERATE PAIN #60 TABLET Prov: 12/08/16 Apixaban (Eliquis) 5 MG PO BID #60 TAB Prov: 12/08/16 Reported Medications Levothyroxine Sodium (Synthroid 0.112MG) 0.112 MG PO DAILY Citalopram Hydrobromide (Citalopram HBr) 10 MG PO DAILY #30 TAB Ferrous Sulfate (Ferrous Sulfate 325MG) 325 MG PO DAILY Rosuvastatin Calcium 20 MG PO DAILY #30 TAB METFORMIN HCL (Metformin HCl ER) 500 MG PO DAILY #30 TAB Gabapentin (Gabapentin 400MG Capsule) 400 MG PO TID #90 CAPSULE Finasteride 5 MG PO DAILY #30 TAB Carbidopa/Levodopa (Carbidopa-Levodopa 25-100 Tab) 2 TAB PO TID #180 TAB Quetiapine Fumarate 25 MG PO QHS #60 TAB Insulin Detemir (Levemir Flextouch) 10 SC NIGHTLY #15 History Medical History General CAD? Yes Angina: Yes NE: Yes Hypertension? Yes Hyperlipidemia? Yes CHF? No DVT? Yes PE? No COPD? No Asthma? No Anemia? Yes GERD? No Gastric ulcers? No Hernia? Yes Thyroid Problems? Yes Hypothyroidism? Yes CVA? No Seizures? No Diabetes? Yes Insulin Dependent: Yes Insulin Pump: No Home FSBS? No End Stage Renal Disease? No UTI? No Stones? No GB Disease: Yes Nephritic Syndrome? No Asplenia? No Hepatitis? No Sickle Cell Disease? No Arthritis? Yes Cataracts? No Glaucoma? No TB? No Depression? Yes Cancer? No More? 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 Skin lumps (RIGHT buttock) Physical Exam Vital Signs Vital Signs Date Time Temp Pulse Resp B/P Pulse O2 O2 Flow FiO2 Ox Delivery Rate 07/17 2005 98.4 74 18 119/67 100 07/17 1935 98.4 74 18 119/67 100 General Appearance normal appearance, WD/WN, no apparent distress Ear, Nose, Throat hearing grossly normal, patient is visible distal tongue hematoma, soft, infiltrating derek frenulum/base. No airway obstruction is noticed. Respiratory Status Yes: trachea midline, chest symmetrical, non tender chest. No: respiratory distress. Lung Sounds bilateral: normal breath sounds, lungs clear. Cardiovascular normal exam, regular rate/rhythm, no peripheral edema, no gallop, no JVD, no murmur, no rub, normal peripheral pulses Gastrointestinal normal bowel sounds, normal exam, non tender, soft, no organomegaly Extremities normal range of motion, normal inspection, RIGHT buttock 7 x 7 soft tissue induration, tender by palpation, no rash noticed, consistent with subcutaneous hematoma Neurologic alert, airplane cleaner II-XII nml as tested, oriented x 3, patient has cogwheeling sign, muscle rigidity, consistent with history of Parkinson's disease Mental status depressed affect, hard of hearing Skin normal color, warm/dry Medical Decision Making LABS/Meds/Orders Pt receiving controlled substance in ED? No Comment Advise patient as well as daughter to apply an ice pack over the RIGHT buttock and avoid ingestion of hot foods or hot liquids, to condition improves. Patient to follow up with PCP/ENT specialist for this medical concern, per discharge instructions. advised to bring patient back promptly if any respiratory distress, choking sensation, difficulty breathing or difficulty speaking. Departure Departure Time of Disposition 1957 Disposition DC Home or Self Care(routine) Clinical Impression Primary Impression: Hematoma Condition STABLE Referrals Joi ARMSTRONG, Berenice Johnson MD,Hugo Vasques Patient Instructions DI for Hematoma (Bruise) Additional Instructions Please avoid any hot foods or beverages, follow up with one of the ENT specialists listed above, return promtly to this ER if any difficulty swallowing or breathing. Discharge Counseling Counseled pt/family regarding diagnosis, medications/RX, home care, follow up needs Comment Please avoid any hot foods or beverages, follow up with one of the ENT specialists listed above, return promtly to this ER if any difficulty swallowing or breathing. ED Critical Care Critical Care No at 0311
[2017-07-17 20:05] VITALS: BP 119/67
== END 2017-07-17 20:20 | disposition home or self-care (01) ==
LOC: ER 19:24
DX: S00.532A Contusion of oral cavity, initial encounter (principal); X58.XXXA Exposure to other specified factors, initial encounter; Y92.9 Unspecified place or not applicable; G20 Parkinson's disease; I25.10 Atherosclerotic heart disease of native coronary artery without angina pectoris; I25.2 Old myocardial infarction; I10 Essential (primary) hypertension; E78.5 Hyperlipidemia, unspecified; D64.9 Anemia, unspecified; E03.9 Hypothyroidism, unspecified; E11.42 Type 2 diabetes mellitus with diabetic polyneuropathy; Z86.718 Personal history of other venous thrombosis and embolism; Z79.01 Long term (current) use of anticoagulants; Z79.4 Long term (current) use of insulin; Z79.899 Other long term (current) drug therapy; Z95.0 Presence of cardiac pacemaker; Z95.5 Presence of coronary angioplasty implant and graft

== ENCOUNTER 2017-08-04 10:02 | Observation (INO) | payer MEDICARE, OTHER ==
[2017-08-04] VITALS (7 sets, daily range): BP systolic 133–148; BP diastolic 72–83
[~2017-08-04] VITALS: Ht 177.8 cm; Wt 77.3 kg
[2017-08-04 10:15] LABS: HEMOGLOBIN 10.4 g/dL (14.1-18.0); LYMPH # 0.7 K/mm3 (0.7-4.5); LYMPH % 18.9 % (10-50)
[2017-08-04] MEDS ORDERED: ASPIRIN 81MG TA81 MG PO (10:18)
--- OUTSIDE RECORDS SUMMARY | 2017-08-04 10:18 | External Medical Summary Rpt | CCD ---
Author Author , ELIEZER Organization ELIEZER Address Unknown Phone [email or web address] Care Team Providers Care Tonger Name Role Phone Suzanne SIMON, Unavailable Unavailable Suzanne Gabriel MD, Unavailable Unavailable Adelfo Gabriel MD Purpose Continuity of Care Document - 05-09-2013 through 2016 Problems Code Diagnosis DOS Provider Status 244.9 Hypothyroid [facility] 272.4 Hyperlipide [facility] 276.8 Hypokalemia [facility] 288.8 Leukocytosi [facility] 401.1 Benign [place] essential [facility] hypertensio [facility] n [phone] [id number] Diabetes [place] mellitus [facility] type 2 [facility] [id number] Active [facility] 593.9 Renal [place] impairment [facility] 600.01 [facility] prostatic [facility] with outflow obstruction [id number] Chronic [facility] D64.9 ANEMIA, UNSPECIFIED E11.22 TYPE 2 DIABETES MELLITUS W DIABETIC CHRONIC KIDNEY DISEASE E86.0 DEHYDRATION H05.231 HEMORRHAGE OF RIGHT ORBIT I50.9 HEART FAILURE, UNSPECIFIED I82.401 ACUTE EMBOLISM AND THOMBOS UNSP DEEP VEINS OF R LOW EXTREM I82.409 ACUTE EMBOLISM AND THOMBOS UNSP DEEP VN UNSP LOWER EXTREMITY I95.9 HYPOTENSION , UNSPECIFIED M62.81 MUSCLE WEAKNESS (GENERALIZE D) R42 DIZZINESS AND GIDDINESS R55 SYNCOPE AND COLLAPSE R60.0 LOCALIZED EDEMA S40.011A CONTUSION OF RIGHT SHOULDER, INITIAL ENCOUNTER T14.8XXA OTHER INJURY OF UNSPECIFIED BODY REGION, INITIAL ENCOUNTER W19.XXXA UNSPECIFIED FALL, INITIAL ENCOUNTER Allergies, Adverse Reactions, Alerts Type Allergy to [...] TA B TO 00 08 5 No NJ 18 -1 OL 61 1- Lo 08 [...] BL ET TO 00 08 1 No NJ 18 -0 OL 61 9- Lo 08 [...] panel, method unspecified - (03-20-2017 13:45) LYMPH 06-19-2 34 % 10% - Normal complet 017 [...] r-mCnc Glucose BldC Glucomtr-mCnc (05-16-2013 11:30) Glucose 05-16- 96 70-110 complet BldC 013 mg/dl ed Glucomt 11:30 r-mCnc Glucose BldC Glucomtr-mCnc (05-16-2013 06:54) Glucose 101 70-110 complet BldC [...] ML/MIN than ed NYA) 06:46 60 Sodium 08-15-2 140 136-145 complet SerPl-s 013 mmoL/L ed Cnc 06:46 Potassi 08-15-2 3.7 3.5-5.1 complet um 013 mmoL/L ed SerPl-s 06:46 Cnc Chlorid 15-2 103 98-107 complet e 013 mmoL/L ed SerPl-s 06:46 Cnc CO2 15-2 34 21.0-32 complet SerPl-s 013 mmoL/L .0 ed Cnc 06:46 Calcium 15-2 7.9 8.5-10. complet 013 mg/dL 1 ed SerPl-m 06:46 Cnc CBC with AUTO DIFF (05-16-2013 06:46) WBC # 08-15-2 6.4 4.8-10. complet Bld 013 K/MM3 8 ed Auto 06:46 RBC # 15-2 3.44 4.6-6.2 complet Bld 013 M/mm3 ed Auto 06:46 Hgb 15-2 10.7 14.1-18 complet Bld-mCn 013 g/dL .0 ed c 06:46 Hct Fr 05-16-2 32.0 % 42.0-52 complet Bld 013 .0 ed 06:46 MCV RBC 15-2 93.1 fl 82.2-97 complet 013 .8 ed 06:46 MCH RBC 15-2 31.0 pg 27-31.2 complet Qn 013 ed Auto 06:46 MEAN 15-2 33.3 31.8-35 complet CORPUSC 013 g/dl .4 ed ULAR 06:46 HGB CONC RDW RBC 15-2 14.8 % 11.5-17 complet Auto 013 .5 ed 06:46 Platele -15-2 208 142-424 complet t Bld 013 K/mm3 ed Ql 06:46 Manual MEAN 15-2 8.0 fl 7.4-10. complet PLATELE 013 4 ed T 06:46 VOLUME Granulo 15-2 71.6 % 37.0-80 complet cytes 013 .0 ed Fr Bld 06:46 Auto LYMPH % 15-2 19.0 % 10-50 complet 013 ed 06:46 Monocyt -15-2 7.1 % 1.7-9.3 complet es Fr 013 ed Bld 06:46 Auto Eosinop 08-15-2 2.1 % 0.1-12. complet hil Fr 013 0 ed Bld 06:46 Auto Basophi 08-15-2 0.3 % 0.1-2.0 complet ls Fr 013 ed Bld 06:46 Auto Granulo 08-15-2 4.5 1.3-8.0 complet cytes # 013 K/mm3 ed Bld 06:46 Auto Lymphoc 08-15-2 1.2 0.7-4.5 complet ytes Fr 013 K/mm3 ed Bld 06:46 Auto Monocyt 08-15-2 0.5 0.1-1.0 complet es # 013 K/mm3 ed Bld 06:46 Auto Eosinop 08-15-2 0.1 0.0-0.4 complet hil # 013 K/mm3 ed Bld 06:46 Auto Basophi 08-15-2 0.0 0-0.2 complet ls # 013 K/MM3 ed Bld 06:46 Auto Glucose BldC Glucomtr-nc (05-15-2013 21:25) Glucose 127 70-110 complet BldC 013 mg/dl ed Glucomt 21:25 r-mCnc Glucose BldC Glucomtr-[facility] (05-15-2013 16:50) Glucose 05-15-2 122 70-110 complet BldC 013 mg/dl ed Glucomt 16:50 r-mCnc Glucose BldC Glucomtr-nc (05-15-2013 12:15) Glucose 05-15-2 151 70-110 complet BldC 013 mg/dl ed Glucomt 12:15 r-mCnc Glucose BldC Glucomtr-nc (05-15-2013 06:26) Glucose 05-15-2 102 70-110 complet BldC 013 mg/dl ed Glucomt 06:26 r-nc BASIC METABOLIC PANEL (05-15-2013 06:20) Glucose 05-15- 110 74-106 complet 013 mg/dL ed Bld-mCn 06:20 c BUN 19 7-18 complet Bld-mCn 013 mg/dL ed c 06:20 Creat 1.1 0.8-1.3 complet SerPl-m 013 mg/dL ed Cnc 06:20 ESTIMAT 75 50-200 complet ED 013 ML/MIN ed CREATIN 06:20 INE CLEARAN CE GFR 66 Greater complet (ESTIMA 013 ML/MIN than ed NYA) 06:20 60 Sodium 05-15- 141 136-145 complet SerPl-s 013 mmoL/L ed Cnc 06:20 Potassi 3.0 3.5-5.1 complet um 013 mmoL/L ed SerPl-s 06:20 Cnc Chlorid 103 98-107 complet e 013 mmoL/L ed SerPl-s 06:20 Cnc CO2 32 21.0-32 complet SerPl-s 013 mmoL/L .0 ed Cnc 06:20 Calcium 8.0 8.5-10. complet 013 mg/dL 1 ed SerPl-m 06:20 Cnc CBC with AUTO DIFF (05-15-2013 06:20) WBC # 05-15-2 8.2 4.8-10. complet Bld 013 K/MM3 8 ed Auto 06:20 RBC # 05-15-2 3.65 4.6-6.2 complet Bld 013 M/mm3 ed Auto 06:20 Hgb 05-15-2 11.1 14.1-18 complet Bld-mCn 013 g/dL .0 ed c 06:20 Hct Fr 33.5 % 42.0-52 complet Bld 013 .0 ed 06:20 MCV RBC 05-15- 91.8 fl 82.2-97 complet 013 .8 ed 06:20 MCH RBC 05-15- 30.4 pg 27-31.2 complet Qn 013 ed Auto 06:20 MEAN 05-15-2 33.1 31.8-35 complet CORPUSC 013 g/dl .4 ed ULAR 06:20 HGB CONC RDW RBC 05-15- 14.2 % 11.5-17 complet Auto 013 .5 ed 06:20 Platele 05-15- 215 142-424 complet t Bld 013 K/mm3 ed Ql 06:20 Manual MEAN 8.2 fl 7.4-10. complet PLATELE 013 4 ed T 06:20 VOLUME Granulo 05-15- 77.6 % 37.0-80 complet cytes 013 .0 ed Fr Bld 06:20 Auto LYMPH % 08-14-2 12.3 % 10-50 complet 013 ed 06:20 Monocyt 08-14-2 9.0 % 1.7-9.3 complet es Fr 013 ed Bld 06:20 Auto Eosinop 08-14-2 0.9 % 0.1-12. complet hil Fr 013 [...] K/MM3 ed Bld 06:20 Auto Glucose BldC Glucomtr-[facility] (05-14-2013 20:33) Glucose 05-14-2 150 70-110 complet BldC 013 mg/dl ed Glucomt 20:33 r-mCnc Glucose BldC Glucomtr-[facility] (05-14-2013 16:31) Glucose 05-14-2 154 70-110 complet BldC 013 mg/dl ed Glucomt 16:31 r-mCnc Glucose BldC Glucomtr-nc (05-14-2013 11:53) Glucose 05-14-2 126 70-110 complet BldC 013 mg/dl ed Glucomt 11:53 r-mCnc Glucose BldC Glucomtr-nc (05-14-2013 06:59) Glucose 08--2 114 70-110 complet BldC 013 mg/dl ed Glucomt 06:59 r-nc Glucose BldC Glucomtr-[facility] (05-13-2013 20:31) Glucose 05-13-2 71 70-110 complet BldC 013 mg/dl ed Glucomt 20:31 r-mCnc Glucose BldC Glucomtr-mCnc (05-13-2013 16:52) Glucose 89 70-110 complet BldC 013 mg/dl ed Glucomt 16:52 r-mCnc Glucose BldC Glucomtr-mCnc (05-13-2013 11:45) Glucose 99 70-110 complet BldC 013 mg/dl ed Glucomt 11:45 r-mCnc Glucose BldC Glucomtr-mCnc (05-13-2013 06:38) Glucose 98 70-110 complet BldC 013 mg/dl ed Glucomt 06:38 r-mCnc Glucose BldC Glucomtr-nc (05-12-2013 20:23) Glucose 111 70-110 complet BldC 013 mg/dl ed Glucomt 20:23 r-mCnc Glucose BldC Glucomtr-[facility] (05-12-2013 16:36) Glucose 118 70-110 complet BldC 013 mg/dl ed Glucomt 16:36 r-nc Glucose BldC Glucomtr-[facility] (05-12-2013 11:50) Glucose 152 70-110 complet BldC 013 mg/dl ed Glucomt 11:50 r-nc Glucose BldC Glucomtr-[facility] (05-12-2013 06:52) Glucose 183 70-110 complet BldC 013 mg/dl ed Glucomt 06:52 r-[facility] BASIC METABOLIC PANEL (05-12-2013 06:30) Glucose 184 [...] 013 mmoL/L ed SerPl-s 06:30 Cnc Chlorid 05-12- 104 98-107 complet e 013 mmoL/L ed SerPl-s 06:30 Cnc CO2 05-12- 27 21.0-32 complet SerPl-s 013 mmoL/L .0 ed Cnc 06:30 Calcium 05-12-2 7.9 8.5-10. complet 013 mg/dL 1 ed SerPl-m 06:30 Cnc CBC with AUTO DIFF (05-12-2013 06:30) WBC # 11-2 11.0 4.8-10. complet Bld 013 K/MM3 8 ed Auto 06:30 RBC # 11-2 3.74 4.6-6.2 complet Bld 013 M/mm3 ed Auto 06:30 Hgb 05-12-2 11.4 14.1-18 complet Bld-mCn 013 g/dL .0 ed c 06:30 Hct Fr 34.4 % 42.0-52 complet Bld 013 .0 ed 06:30 MCV RBC 05-12- 92.0 fl 82.2-97 complet 013 .8 ed 06:30 MCH RBC 05-12- 30.5 pg 27-31.2 complet Qn 013 ed Auto 06:30 MEAN 05-12- 33.2 31.8-35 complet CORPUSC 013 g/dl .4 ed ULAR 06:30 HGB CONC RDW RBC 05-12-2 13.9 % 11.5-17 complet Auto 013 .5 ed 06:30 Platele 05-12-2 119 142-424 complet t Bld 013 K/mm3 ed Ql 06:30 Manual MEAN 05-12- 9.2 fl 7.4-10. complet PLATELE 013 4 ed T 06:30 VOLUME Granulo 05-12-2 86.8 % 37.0-80 complet cytes 013 .0 ed Fr Bld 06:30 Auto LYMPH % 11-2 6.0 % 10-50 complet 013 ed 06:30 Monocyt -11-2 7.1 % 1.7-9.3 complet es Fr 013 ed Bld 06:30 Auto Eosinop 05-12-2 0.0 % 0.1-12. complet hil Fr 013 0 ed Bld 06:30 Auto Basophi 08-11-2 0.0 % 0.1-2.0 complet ls Fr 013 ed Bld 06:30 Auto Granulo 08-11-2 9.6 1.3-8.0 complet cytes # 013 K/mm3 ed Bld 06:30 Auto Lymphoc 08-11-2 0.7 0.7-4.5 complet ytes Fr 013 K/mm3 ed Bld 06:30 Auto Monocyt 08-11-2 0.8 0.1-1.0 complet es # 013 K/mm3 ed Bld 06:30 Auto Eosinop 08-11-2 0.0 0.0-0.4 complet hil # 013 K/mm3 ed Bld 06:30 Auto Basophi 08-11-2 0.0 0-0.2 complet ls # 013 K/MM3 ed Bld 06:30 Auto Glucose BldC Glucomtr-[facility] (05-11-2013 20:13) Glucose 05-11-2 175 70-110 complet BldC 013 mg/dl ed Glucomt 20:13 r-[facility] Glucose BldC Glucomtr-[facility] (05-11-2013 12:20) Glucose 10-2 198 70-110 complet BldC 013 mg/dl ed Glucomt 12:20 r-[facility] Glucose BldC Glucomtr-nc (05-11-2013 06:09) Glucose 10-2 165 70-110 complet BldC 013 mg/dl ed Glucomt 06:09 r-[facility] BASIC METABOLIC PANEL (05-11-2013 06:00) Glucose 10-2 178 74-106 complet 013 mg/dL ed Bld-mCn [...] 013 mmoL/L .0 ed Cnc 06:00 Calcium 8.6 8.5-10. complet 013 mg/dL 1 ed SerPl-m 06:00 Cnc CBC with AUTO DIFF (05-11-2013 06:00) WBC # 10-2 16.7 4.8-10. complet Bld 013 K/MM3 8 ed Auto 06:00 RBC # 10- 5.02 4.6-6.2 complet Bld 013 M/mm3 ed Auto 06:00 Hgb 15.6 14.1-18 complet Bld-mCn 013 g/dL .0 ed c 06:00 Hct Fr 46.1 % 42.0-52 complet Bld 013 .0 ed 06:00 MCV RBC 91.7 fl 82.2-97 complet 013 .8 ed 06:00 MCH RBC 05-11- 31.2 pg 27-31.2 complet Qn 013 ed Auto 06:00 MEAN 34.0 31.8-35 complet CORPUSC 013 g/dl .4 ed ULAR 06:00 HGB CONC RDW RBC 14.0 % 11.5-17 complet Auto 013 .5 ed 06:00 Platele 148 142-424 complet t Bld 013 K/mm3 ed Ql 06:00 Manual MEAN 8.5 fl 7.4-10. complet PLATELE 013 4 ed T 06:00 VOLUME Granulo 05-11- 88.2 % 37.0-80 complet cytes 013 .0 ed Fr Bld 06:00 Auto LYMPH % 05-11- 3.7 % 10-50 complet 013 ed 06:00 Monocyt 05-11-2 7.7 % 1.7-9.3 complet es Fr 013 ed Bld 06:00 Auto Eosinop 08-10-2 0.1 % 0.1-12. complet hil Fr 013 0 ed Bld 06:00 Auto Basophi 08-10-2 0.2 % 0.1-2.0 complet ls Fr 013 ed Bld 06:00 Auto Granulo -10-2 14.8 1.3-8.0 complet cytes # 013 K/mm3 ed Bld 06:00 Auto Lymphoc -10-2 0.6 0.7-4.5 complet ytes Fr 013 K/mm3 ed Bld 06:00 Auto Monocyt 08-10-2 1.3 0.1-1.0 complet es # 013 K/mm3 ed Bld 06:00 Auto Eosinop -10-2 0.0 0.0-0.4 complet hil # 013 K/mm3 ed Bld 06:00 Auto Basophi 08-10-2 0.0 0-0.2 complet ls # 013 K/MM3 ed Bld 06:00 Auto Glucose BldC Glucomtr-mCnc (05-10-2013 20:15) Glucose 150 70-110 complet BldC 013 mg/dl ed Glucomt 20:15 r-mCnc Glucose BldC Glucomtr-mCnc (05-10-2013 17:03) Glucose 156 70-110 complet BldC 013 mg/dl ed Glucomt 17:03 r-mCnc Glucose BldC Glucomtr-mCnc (05-10-2013 12:07) Glucose 192 70-110 complet BldC 013 mg/dl ed Glucomt 12:07 r-nc PROTIME/INR (05-10-2013 08:30) PROTHRO 11.1 9.9-11. complet MBIN 013 SECONDS 6 ed TIME 08:30 INR Bld 1.04 0.9-1.1 complet 013 UNK ed 08:30 ACT PARTIAL THROMBO TIME (05-10-2013 08:30) ACT 27.5 25.3-32 complet PARTIAL 013 SECONDS .0 ed 08:30 THROMBO TIME COMPREHENSIVE METABOLIC PANEL (05-10-2013 07:50) Glucose 170 74-106 complet 013 mg/dL ed Bld-n 07:50 c BUN 08-09-2 19 7-18 complet Bld-mCn 013 mg/dL ed [...] with AUTO DIFF (05-10-2013 07:50) WBC # 05-10- 11.0 4.8-10. complet Bld 013 K/MM3 8 ed Auto 07:50 RBC # 08-09-2 5.24 4.6-6.2 complet Bld 013 M/mm3 ed Auto 07:50 Hgb 08-09-2 16.0 14.1-18 complet Bld-mCn 013 g/dL .0 ed c 07:50 Hct Fr -09-2 48.4 % 42.0-52 complet Bld 013 .0 ed 07:50 MCV RBC 08-09-2 92.5 fl 82.2-97 complet 013 .8 ed 07:50 MCH RBC -09-2 30.6 pg 27-31.2 complet Qn 013 ed Auto 07:50 MEAN 08-09-2 33.0 31.8-35 complet CORPUSC 013 g/dl .4 ed ULAR 07:50 HGB CONC RDW RBC -09-2 13.7 % 11.5-17 complet Auto 013 .5 ed 07:50 Platele 08-09-2 155 142-424 complet t Bld 013 K/mm3 ed Ql 07:50 Manual MEAN 05-10-2 8.1 fl 7.4-10. complet PLATELE 013 4 ed T 07:50 VOLUME Granulo 08-09-2 89.8 % 37.0-80 complet cytes 013 .0 [...] 013 K/mm3 ed Bld 07:50 Auto Basophi 0809-2 0.0 0-0.2 complet ls # 013 K/MM3 ed Bld 07:50 Auto Glucose BldC Glucomtr-[facility] (05-10-2013 06:27) Glucose 08-09-2 154 70-110 complet BldC 013 mg/dl ed Glucomt 06:27 r-[facility] URINALYSIS/COMPLETE (05-09-2013 15:50) URINE 08-2 YELLOW YELLOW complet COLOR 013 ed 15:50 URINE 0808-2 CLEAR CLEAR complet APPEARA 013 ed NCE 15:50 URINE 0808-2 NEGATIV NEG complet GLUCOSE 013 E ed - 15:50 DIPSTIC K URINE 0808-2 NEGATIV NEG complet BILIRUB 013 E ed IN - 15:50 DIPSTIC K URINE 0808-2 NEGATIV NEG complet KETONE 013 E mg/dL ed 15:50 URINE 08-2 1.020 1.005-1 complet SPECIFI 013 UNK .030 ed C 15:50 GRAVITY URINE 08-2 TRACE-I NEG complet BLOOD 013 NTACT ed 15:50 URINE 0808-2 6.0 UNK 5.0-8.5 complet PH 013 ed 15:50 URINE 0808-2 NEGATIV NEG complet PROTEIN 013 E mg/dL ed - 15:50 DIPSTIC K URINE 0808-2 1.0 NEG complet UROBILI 013 E.U./dL ed NOGEN - 15:50 DIPSTIC K URINE 0808-2 NEGATIV NEG complet NITRATE 013 E ed - 15:50 DIPSTIC K URINE 08-08-2 NEGATIV NEG complet LEUK 013 E ed ESTERAS 15:50 E URINE 08-08-2 5-10 0 complet RBC 013 rbc/hpf ed 15:50 URINE 0808-2 OCC O complet WBC 013 wbc/hpf ed 15:50 URINE 0808-2 OCC OCC complet SQUAMOU 013 #/hpf ed S CELLS 15:50 URINE 0808-2 TRACE O complet BACTERI 013 ed A 15:50 COMPREHENSIVE METABOLIC PANEL (05-09-2013 15:05) Glucose 08-08-2 144 74-106 complet 013 mg/dL ed Bld-n 15:05 c BUN 08-08-2 20 7-18 complet Bld-mCn 013 mg/dL ed c 15:05 Creat 1.4 0.8-1.3 complet SerPl-m 013 mg/dL ed Cnc 15:05 ESTIMAT 53 50-200 complet ED 013 ML/MIN ed CREATIN 15:05 INE CLEARAN CE GFR 50 Greater complet [...] with AUTO DIFF (05-09-2013 15:05) WBC # 05-09- 6.1 4.8-10. complet Bld 013 K/MM3 8 ed Auto 15:05 RBC # 08-08-2 4.78 4.6-6.2 complet Bld 013 M/mm3 ed Auto 15:05 Hgb 08-08-2 14.7 14.1-18 complet Bld-mCn 013 g/dL .0 ed c 15:05 Hct Fr -08-2 44.2 % 42.0-52 complet Bld 013 .0 ed 15:05 MCV RBC 08-08-2 92.5 fl 82.2-97 complet 013 .8 ed 15:05 MCH RBC -08-2 30.7 pg 27-31.2 complet Qn 013 ed Auto 15:05 MEAN 08-08-2 33.2 31.8-35 complet CORPUSC 013 g/dl .4 ed ULAR 15:05 HGB CONC RDW RBC 08-2 14.3 % 11.5-17 complet Auto 013 .5 ed 15:05 Platele -08-2 173 142-424 complet t Bld 013 K/mm3 ed Ql 15:05 Manual MEAN 08-2 8.3 fl 7.4-10. complet PLATELE 013 4 ed T 15:05 VOLUME Granulo 08-08-2 45.7 % 37.0-80 complet cytes 013 .0 ed Fr Bld 15:05 Auto LYMPH % 08-08-2 43.6 % 10-50 complet 013 ed 15:05 Monocyt 08-08-2 7.7 % 1.7-9.3 complet es Fr 013 ed Bld 15:05 Auto Eosinop 08-08-2 2.4 % 0.1-12. complet hil Fr 013 0 ed Bld 15:05 Auto Basophi 08-08-2 0.5 % 0.1-2.0 complet ls Fr 013 ed Bld 15:05 Auto Granulo 08-08-2 2.8 1.3-8.0 complet cytes # 013 K/mm3 ed Bld 15:05 Auto Lymphoc 08-08-2 2.6 0.7-4.5 complet ytes Fr 013 K/mm3 ed Bld 15:05 Auto Monocyt 08-08-2 0.5 0.1-1.0 complet es # 013 K/mm3 ed Bld 15:05 Auto Eosinop 08-08-2 0.2 0.0-0.4 complet hil # 013 K/mm3 ed Bld 15:05 Auto Basophi 05-09- 0.0 0-0.2 complet ls # 013 K/MM3 ed Bld 15:05 Auto Procedures Procedure DOS Code Location Performer Comment ING 53.05 Adelfo HERNIA Nery REP-GRAFT NOS PART SM 45.62 Adelfo BOWEL Nery RESECT NEC Encounters Encounter Start End Date Code Location Performer Type Date Inpatient IMP Markell Watson ([place]) 3 16:08 3 13:00 [facility]
--- OUTSIDE RECORDS SUMMARY | 2017-08-04 10:18 | External Medical Summary Rpt | CCD ---
Author Author , ELIEZER Organization ELIEZER Address Unknown Phone [email or web address] Team Providers Care Parole Officer Name Role Phone Suzanne SIMON, Unavailable Unavailable Suzanne Gabriel MD, Unavailable Unavailable Adelfo Gabriel MD Purpose Continuity of Care Document - 05-09-2013 through 2016 Problems Code Diagnosis DOS Provider Status 244.9 Hypothyroid [facility] 272.4 Hyperlipide [facility] 276.[address] Hyp[address] [facility] 288.8 Leukocytosi [facility] 401.1 Benign [place] essential [facility] hypertensio [facility] n 414.00 414.01 [id number] Diabetes [place] mellitus [facility] type 2 [facility] [id number] Active [facility] 593.9 Renal [place] impairment [facility] 600.01 [facility] prostatic [facility] with outflow obstruction [id number] Chronic [facility] D64.9 ANEMIA, UNSPECIFIED E11.22 TYPE 2 DIABETES [...] TA B TO 00 08 5 No MS 18 -1 OL 61 1- Lo 08 [...] BL ET TO 00 08 1 No MS 18 -0 OL 61 9- Lo 08 [...] mg/dl ed Glucomt 21:25 r-mCnc Glucose BldC Glucomtr-[facility] (05-15-2013 16:50) Glucose 05-15-2 122 70-110 complet [...] K/MM3 ed Bld 06:20 Auto Glucose BldC Glucomtr-[facility] (05-14-2013 20:33) Glucose 05-14-2 150 70-110 complet BldC 013 mg/dl ed Glucomt 20:33 r-mCnc Glucose BldC Glucomtr-[facility] (05-14-2013 16:31) Glucose 05-14-2 154 70-110 complet BldC 013 mg/dl ed Glucomt 16:31 r-mCnc Glucose BldC Glucomtr-nc (05-14-2013 11:53) Glucose 05-14-2 126 70-110 complet BldC 013 mg/dl ed Glucomt 11:53 r-mCnc Glucose BldC Glucomtr-nc (05-14-2013 06:59) Glucose 08--2 114 70-110 complet BldC 013 mg/dl ed Glucomt 06:59 r-nc Glucose BldC Glucomtr-[facility] (05-13-2013 20:31) Glucose 05-13-2 71 70-110 complet [...] mg/dl ed Glucomt 20:23 r-mCnc Glucose BldC Glucomtr-[facility] (05-12-2013 16:36) Glucose 118 70-110 complet BldC 013 mg/dl ed Glucomt 16:36 r-nc Glucose BldC Glucomtr-[facility] (05-12-2013 11:50) Glucose 152 70-110 complet BldC 013 mg/dl ed Glucomt 11:50 r-nc Glucose BldC Glucomtr-[facility] (05-12-2013 06:52) Glucose 183 70-110 complet BldC 013 mg/dl ed Glucomt 06:52 r-[facility] BASIC METABOLIC PANEL (05-12-2013 06:30) Glucose 184 [...] K/MM3 ed Bld 06:30 Auto Glucose BldC Glucomtr-[facility] (05-11-2013 20:13) Glucose 05-11-2 175 70-110 complet BldC 013 mg/dl ed Glucomt 20:13 r-[facility] Glucose BldC Glucomtr-[facility] (05-11-2013 12:20) Glucose 10-2 198 70-110 complet BldC 013 mg/dl ed Glucomt 12:20 r-[facility] Glucose BldC Glucomtr-nc (05-11-2013 06:09) Glucose 10-2 165 70-110 complet BldC 013 mg/dl ed Glucomt 06:09 r-[facility] BASIC METABOLIC PANEL (05-11-2013 06:00) Glucose 10-2 [...] K/MM3 ed Bld 07:50 Auto Glucose BldC Glucomtr-[facility] (05-10-2013 06:27) Glucose 08-09-2 154 70-110 complet BldC 013 mg/dl ed Glucomt 06:27 r-[facility] URINALYSIS/COMPLETE (05-09-2013 15:50) URINE 08-2 YELLOW YELLOW [...] Markell [place] ([place]) 3 16:08 3 13:00 [facility]
--- NOTE | 2017-08-04 10:19 | Emergency Room Report ---
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 N Clinical Suspician of Infection? N Mental Status: 1 - Regular (Normal Baseline) Sepsis Risk:Low Sepsis Risk Have you (or family members/close friends) recently traveled outside the [place]? N If Yes, where/when: Have you had exposure to infectious disease within the past month? N TB? Other? Specify: Comment The patient arrives by ambulance complaining of chest pain. He locates the pain in his lower sternal area and says it hurts when he bends over forward. He says it only hurts when he bends over or does his exercises. No injury recalled. He says the pain is brief in nature. No shortness of breath, cough, fever, or vomiting. He ate breakfast this morning. No change in pain with eating. Currently denies pain. ALLERGIES Coded Allergies: No Known Allergies (12/05/16) Home Medications Active Scripts Omeprazole (Omeprazole 40MG) 40 MG PO DAILY #30 ECC Prov: 12/08/16 Cyanocobalamin (Vitamin B-12) (Vitamin B12) 2,500 MCG PO DAILY #30 TAB Prov: 12/08/16 Tramadol Hcl (Tramadol 50MG) 50 MG PO Q4HP PRN MODERATE PAIN #60 TABLET Prov: 12/08/16 Apixaban (Eliquis) 5 MG PO BID #60 TAB Prov: 12/08/16 Reported Medications Levothyroxine Sodium (Synthroid 0.112MG) 0.112 MG PO DAILY Citalopram Hydrobromide (Citalopram HBr) 10 MG PO DAILY #30 TAB Ferrous Sulfate (Ferrous Sulfate 325MG) 325 MG PO DAILY Rosuvastatin Calcium 20 MG PO DAILY #30 TAB METFORMIN HCL (Metformin HCl ER) 500 MG PO DAILY #30 TAB Gabapentin (Gabapentin 400MG Capsule) 400 MG PO TID #90 CAPSULE Finasteride 5 MG PO DAILY #30 TAB Carbidopa/Levodopa (Carbidopa-Levodopa 25-100 Tab) 2 TAB PO TID #180 TAB Quetiapine Fumarate 25 MG PO QHS #60 TAB Insulin Detemir (Levemir Flextouch) 10 SC NIGHTLY #15 ASPIRIN (Aspirin) 81 MG PO DAILY History Medical History General CAD? Yes Angina: Yes [place]: Yes Hypertension? Yes Hyperlipidemia? Yes CHF? No DVT? Yes PE? No COPD? No Asthma? No Anemia? Yes GERD? No Gastric ulcers? No Hernia? Yes Thyroid Problems? Yes Hypothyroidism? Yes CVA? No Seizures? No Diabetes? Yes Insulin Dependent: Yes Insulin Pump: No Home FSBS? No End Stage Renal Disease? No UTI? No Stones? No GB Disease: Yes Nephritic Syndrome? No Asplenia? No Hepatitis? No Sickle Cell Disease? No Arthritis? Yes Cataracts? No Glaucoma? No TB? No Depression? Yes Cancer? No More? 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 Family History Family Hx Diabetes Yes CAD No Hypertension Yes Hyperlipidemia Yes Cancer No TB No Social History Smoking Hx Smoker: Former Smoker Tobacco: No Packs/day N/A Alcohol Alcohol: No Review of Systems All Other Systems Reviewed and Negative Respiratory denies shortness of breath Cardiovascular chest pain, edema (chronic) Gastrointestinal denies abdominal pain, denies diarrhea, denies vomiting Physical Exam Vital Signs Vital Signs Date Time Temp Pulse Resp B/P Pulse O2 O2 Flow FiO2 Ox Delivery Rate 08/04 1200 98.4 70 18 157/78 97 08/04 1142 98.4 70 18 157/78 97 08/04 1110 70 18 145/80 98 08/04 1003 98.0 69 18 140/83 100 General Appearance normal appearance, WD/WN Eye Exam - bilateral eye normal exam, bilateral eye PERRL, bilateral eye EOMI Ear, Nose, Throat hearing grossly normal, normal ENT inspection Neck normal inspection, non-tender, supple, full range of motion Respiratory Status Yes: trachea midline, chest symmetrical, non tender chest. No: respiratory distress. Lung Sounds bilateral: normal breath sounds, lungs clear. Cardiovascular normal exam, regular rate/rhythm, no peripheral edema, no gallop, no JVD, no murmur, no rub, normal peripheral pulses Peripheral Pulses Pulses normal Yes Gastrointestinal normal bowel sounds, soft, no organomegaly, on first exam, patient states tender in epigastrium, on reexamination, states nontender. Daughter states she got the clear impression at home that his pain was chest pain and not abdominal pain. Extremities non-tender, swelling (2+ pitting edema of the legs) Neurologic alert, credit counselor II-XII nml as tested, normal exam, oriented x 3 Mental status normal mood/affect Skin intact, normal color, warm/dry Medical Decision Making LABS/Meds/Orders Pt receiving controlled substance in ED? No Results/Orders Laboratory Tests 08/04/17 1210: POC Glucose 91 08/04/17 1005: Lipase 97 08/04/17 1005: Sodium 136, Potassium 3.9, Chloride 102, Carbon Dioxide 29, BUN 12, Creatinine 0.8, Estimated Creat Clear 92, Estimated GFR (MDRD) 94, Glucose 96, Calcium 8.8, Total Bilirubin 0.9, AST 19, ALT 8 L, Alkaline Phosphatase 166 H, Creatine Kinase 86, CK-MB (CK-2) Rel Index 1.9, CK and CKMB Interp 1.6, Troponin I 0.02, Total Protein 7.0, Albumin 2.9 L, Globulin 4.1 H, Albumin/Globulin Ratio 0.7 L, WBC 3.9 L, RBC 3.48 L, Hgb 10.4 L, Hct 32.7 L, MCV 94.1, RDW 16.6, Plt Count 225, MPV 7.8, Gran % 68.5, Gran # 2.7, Lymphocytes % 18.9, Monocytes % 9.8 H, Eosinophils % 2.3, Basophils % 0.5, Lymphocytes # 0.7, Monocytes # 0.4, Eosinophils # 0.1, Basophils # 0.0, PUBS MCHC 31.8, MCH 30.0 Current Medication Orders Sig/Litzy Start time Last Medication Dose Route Stop Time Status Admin Aspirin 81 MG DAILY 08/05 900 AC PO Citalopram 10 MG DAILY 08/05 900 AC Hydrobromide PO Ferrous Sulfate 325 MG DAILY 08/05 900 AC PO Finasteride 5 MG DAILY 11/04 0900 AC PO Levothyroxine Sodium 0.112 MG DAILY 08/05 0900 AC PO Pantoprazole Sodium 40 MG DAILY 08/05 0900 AC PO Patient Own 1 UNIT BID 08/04 2100 AC Medication PO Pravastatin Sodium 40 MG QHS 08/04 2100 CKD PO Quetiapine Fumarate 25 MG QHS 08/04 2100 AC PO Carbidopa/Levodopa 1 TABLET TID 08/04 1300 AC PO Gabapentin 400 MG TID 08/04 1300 AC PO Diagnostic Test (Pha) 1 EACH W/MEALS&HS 08/04 1200 AC 08/04 FS 10/03 1159 1213 Insulin Human [rDNA See Dose W/MEALS&HS 08/04 1200 AC origin] Insts (1) SC Influenza Virus 0.5 ML PRN PRN 08/04 1130 AC Vaccine Quadrival IM Miscellaneous 0 CONSULT PHARMACY 08/04 1130 DC Information * 08/04 2327 Nicotine 21 MG DAILYP PRN 08/04 1130 AC TD Sodium Chloride 10 ML PRN PRN 08/04 1130 AC IV Tramadol HCl 50 MG Q4HP PRN 08/04 1130 AC PO Sodium Chloride 10 ML PRN PRN 08/04 1015 AC IV 08/05 1003 Dose Instructions: (1)Insulin Human [rDNA origin]: SEE ADMIN CRITERIA FOR MEDIUM INTENSITY Orders Procedure Date/time Status DIET-1999 CALORIE ADA 08/04 D Active TROPONIN I 08/04 2100 Active TROPONIN I 08/04 1700 Active TROPONIN I 08/04 1300 Active FINGERSTICK BLOOD SUGAR 08/04 1210 Complete Decision to admit 08/04 1101 Active LIPASE 08/04 1025 Complete ELECTROCARDIOGRAM REQUEST 08/04 1003 Active IV SALINE LOCK 08/04 1003 Active ICU REGISTERED NURSE 08/04 1003 Active CBC WITH AUTO DIFF 08/04 1003 Complete CARDIAC ENZYMES 08/04 1003 Complete CHEM 12 PROFILE 08/04 1003 Complete ADMIT PATIENT 08/04 UNK Active 12 LEAD EKG-GARRY (INITIAL) 08/04 UNK Active VITAL SIGNS 08/04 UNK Active ESTHETICIAN PERMANENT MAKEUP ARTIST 08/04 UNK Active IV SALINE LOCK 08/04 UNK Active CODE STATUS 08/04 UNK Active PATIENT ACTIVITY ORDER 08/04 UNK Active CM/EKG CM/EKG Comments EKG interpreted by Mervin Stokes MD: Rhythm: Atrial/Ventricular paced rhythm Rate: 70 No evidence of acute ischemia or injury Baseline artifact present, but I consider the EKG adequate for accurate interpretation. XRAY/CT/US XRAY/CT/US XRAY chest Comment X-ray interpreted by Mervin Stokes M.D.: interposition of bowel under RIGHT diaphragm. Pacemaker. No acute process. Progress - 10:57 AM: Patient now states that he feels safer staying in the hospital because "staff could get him quicker if anything happened". Family requests that I contact primary care physician to see if they would admit him. Family says they have not heard him state this type of concern before. 11:00 AM: I have discussed the case with Dr. Watson who agrees to admit the patient to the hospital. We discussed the patient's clinical information, including history, exam, laboratory and radiology results and ED course. Per hospital procedure, I will write temporary bridge inpatient orders on the patient. Specific orders requested by the admitting physician: Serial cardiac enzymes Departure Departure Disposition Still a Patient Clinical Impression Primary Impression: Precordial chest pain Condition STABLE Referrals Yon Watson MD (Family) ED Critical Care Critical Care No at [id number]
--- OUTSIDE RECORDS SUMMARY | 2017-08-04 10:19 | External Medical Summary Rpt | CCD ---
Author Author , ELIEZER MARTINS Address Unknown Phone [email or web address] Immunization Name Date Rout CVX Reac Dose Comm Prov Is Faci e tion ent ider Refu lity Give sed n Infl 10-2 Intr 135 0.5 Hist D049 No D049 uenz 8-20 amus mL oric 01 01 a, 17 cula al High r Info rmat Dose ion - Sour ce Unsp ecif ied
--- OUTSIDE RECORDS SUMMARY | 2017-08-04 10:19 | External Medical Summary Rpt | CCD ---
Author Author , ELIEZER MARTINS Address Unknown Phone [email or web address] Immunization Name Date Rout CVX Reac Dose Comm Prov Is Faci e tion ent ider Refu lity Give sed n Infl 10-2 Intr 135 0.5 Hist D049 No D049 uenz 8-20 amus mL oric 01 01 a, 17 cula al High r Info rmat Dose ion - Sour ce Unsp ecif ied
--- NOTE | 2017-08-04 10:59 | RADIOLOGY REPORT PS360 ---
CHEST-PORTABLE HISTORY: CHEST PAIN ORDERING PHYSICIAN: Mervin Stokes MD PATIENT AGE: 76 years COMPARISON: 12/02/2016 FINDINGS: Cardiac pacemaker device is present from left subclavian approach. Unremarkable heart size.. Bowel interposition is noted on the right. Minimal atelectasis versus scarring present in the left lung base. The remaining lungs are clear.. No acute bony abnormalities. IMPRESSION: As above, no acute finding
--- OUTSIDE RECORDS SUMMARY | 2017-08-04 11:24 | External Medical Summary Rpt | CCD ---
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 [facility] [id number] Diabetes [place] mellitus [facility] type 2 [facility] [id number] Active [facility] 593.9 Renal [place] impairment [facility] 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 [id number] Chronic [facility] Allergies, Adverse Reactions, Alerts Type Allergy to [...] TA B TO 00 08 5 No OR 18 -1 OL 61 1- Lo 08 [...] BL ET TO 00 08 1 No OR 18 -0 OL 61 9- Lo 08 [...] ed in 13:45 7.0% Blood Glucose BldC [facility]com[facility] (05-17-2013 06:45) Glucose 106 70-110 complet BldC 013 mg/dl ed Glucomt 06:45 r-[facility] Glucose BldC Glucomtr-mCnc (05-16-2013 20:32) Glucose 129 70-110 complet BldC 013 mg/dl ed Glucomt 20:32 r-mCnc Glucose BldC Glucomtr-mCnc (05-16-2013 16:41) Glucose 111 70-110 complet BldC 013 mg/dl ed Glucomt 16:41 r-mCnc Glucose BldC Glucomtr-mCnc (05-16-2013 11:30) Glucose 05-16-2 96 70-110 complet BldC 013 mg/dl ed Glucomt 11:30 r-mCnc Glucose BldC Glucomtr-mCnc (05-16-2013 06:54) Glucose 101 70-110 complet BldC 013 mg/dl ed Glucomt 06:54 r-nc BASIC METABOLIC PANEL (05-16-2013 06:46) Glucose 103 [...] 013 mmoL/L .0 ed Cnc 06:46 Calcium 7.9 8.5-10. complet 013 mg/dL 1 ed SerPl-m 06:46 Cnc CBC with AUTO DIFF (05-16-2013 06:46) WBC # 6.4 4.8-10. complet Bld 013 K/MM3 8 [...] mg/dl ed Glucomt 21:25 r-mCnc Glucose BldC Glucomtr-mCnc (05-15-2013 16:50) Glucose 05-15-2 122 70-110 complet BldC 013 mg/dl ed Glucomt 16:50 r-mCnc Glucose BldC Glucomtr-mCnc (05-15-2013 12:15) Glucose 05-15-2 151 70-110 complet BldC 013 mg/dl ed Glucomt 12:15 r-mCnc Glucose BldC Glucomtr-nc (05-15-2013 06:26) Glucose 05-15-2 102 70-110 complet BldC 013 mg/dl ed Glucomt 06:26 r-mCnc BASIC METABOLIC PANEL (05-15-2013 06:20) Glucose 110 74-106 complet 013 mg/dL ed Bld-mCn [...] 013 mmoL/L .0 ed Cnc 06:20 Calcium 08-14-2 8.0 8.5-10. complet 013 mg/dL 1 ed SerPl-m 06:20 Cnc CBC with AUTO DIFF (05-15-2013 06:20) WBC # 08-14-2 8.2 4.8-10. complet Bld 013 K/MM3 8 ed Auto 06:20 RBC # 08-14-2 3.65 4.6-6.2 complet Bld 013 M/mm3 ed Auto 06:20 Hgb 08-14-2 11.1 14.1-18 complet Bld-mCn 013 g/dL .0 ed c 06:20 Hct Fr 14-2 33.5 % 42.0-52 complet Bld 013 .0 ed 06:20 MCV RBC 08-14-2 91.8 fl 82.2-97 complet 013 .8 ed 06:20 MCH RBC -14-2 30.4 pg 27-31.2 complet Qn 013 ed Auto 06:20 MEAN -14-2 33.1 31.8-35 complet CORPUSC 013 g/dl .4 ed ULAR 06:20 HGB CONC RDW RBC -14-2 14.2 % 11.5-17 complet Auto 013 .5 ed 06:20 Platele -14-2 215 142-424 complet t Bld 013 K/mm3 [...] 013 K/mm3 ed Bld 06:20 Auto Lymphoc -14-2 1.0 0.7-4.5 complet ytes Fr 013 K/mm3 ed Bld 06:20 Auto Monocyt 08-14-2 0.7 0.1-1.0 complet es # 013 K/mm3 ed Bld 06:20 Auto Eosinop 08-14-2 0.1 0.0-0.4 complet hil # 013 K/mm3 ed Bld 06:20 Auto Basophi 08-14-2 0.0 0-0.2 complet ls # 013 K/MM3 ed Bld 06:20 Auto Glucose BldC Glucomtr-mCnc (05-14-2013 20:33) Glucose 05-14-2 150 70-110 complet BldC 013 mg/dl ed Glucomt 20:33 r-mCnc Glucose BldC Glucomtr-nc (05-14-2013 16:31) Glucose 05-14-2 154 70-110 complet BldC 013 mg/dl ed Glucomt 16:31 r-mCnc Glucose BldC Glucomtr-nc (05-14-2013 11:53) Glucose 2 126 70-110 complet BldC 013 mg/dl ed Glucomt 11:53 r-mCnc Glucose BldC Glucomtr-nc (05-14-2013 06:59) Glucose 114 70-110 complet BldC 013 mg/dl ed Glucomt 06:59 r-mCnc Glucose BldC Glucomtr-nc (05-13-2013 20:31) Glucose 05-13- 71 70-110 complet BldC 013 mg/dl ed Glucomt 20:31 r-mCnc Glucose BldC Glucomtr-nc (05-13-2013 16:52) Glucose 05-13-2 89 70-110 complet BldC 013 mg/dl ed Glucomt 16:52 r-mCnc Glucose BldC Glucomtr-mCnc (05-13-2013 11:45) Glucose 99 70-110 complet BldC 013 mg/dl ed Glucomt 11:45 r-mCnc Glucose BldC Glucomtr-nc (05-13-2013 06:38) Glucose 98 70-110 complet BldC 013 mg/dl ed Glucomt 06:38 r-mCnc Glucose BldC Glucomtr-nc (05-12-2013 20:23) Glucose 111 70-110 complet BldC 013 mg/dl ed Glucomt 20:23 r-mCnc Glucose BldC Glucomtr-mCnc (05-12-2013 16:36) Glucose 118 70-110 complet BldC 013 mg/dl ed Glucomt 16:36 r-nc Glucose BldC Glucomtr-mCnc (05-12-2013 11:50) Glucose 152 70-110 complet BldC 013 mg/dl ed Glucomt 11:50 r-mCnc Glucose BldC Glucomtr-mCnc (05-12-2013 06:52) Glucose 183 70-110 complet BldC 013 mg/dl ed Glucomt 06:52 r-[facility] BASIC METABOLIC PANEL (05-12-2013 06:30) Glucose 184 [...] 013 mmoL/L .0 ed Cnc 06:30 Calcium 7.9 8.5-10. complet 013 mg/dL 1 ed SerPl-m 06:30 Cnc CBC with AUTO DIFF (05-12-2013 06:30) WBC # 05-12- 11.0 4.8-10. complet Bld 013 K/MM3 8 ed Auto 06:30 RBC # 08-11-2 3.74 4.6-6.2 complet Bld 013 M/mm3 ed Auto 06:30 Hgb 08-11-2 11.4 14.1-18 complet Bld-mCn 013 g/dL .0 ed c 06:30 Hct Fr 11-2 34.4 % 42.0-52 complet Bld 013 .0 ed 06:30 MCV RBC 11-2 92.0 fl 82.2-97 complet 013 .8 ed 06:30 MCH RBC 11-2 30.5 pg 27-31.2 complet Qn 013 ed Auto 06:30 MEAN 08-11-2 33.2 31.8-35 complet CORPUSC 013 g/dl .4 ed ULAR 06:30 HGB CONC RDW RBC 11-2 13.9 % 11.5-17 complet Auto 013 .5 ed 06:30 Platele 08-11-2 119 142-424 complet t Bld 013 K/mm3 ed Ql 06:30 Manual MEAN 11-2 9.2 fl 7.4-10. complet PLATELE 013 4 ed T 06:30 VOLUME Granulo 08-11-2 86.8 % 37.0-80 complet cytes 013 .0 ed Fr Bld 06:30 Auto LYMPH % 08-11-2 6.0 % 10-50 complet 013 ed 06:30 [...] Auto Glucose BldC Glucomtr-mCnc (05-11-2013 20:13) Glucose 05-11- 175 70-110 complet BldC 013 mg/dl ed Glucomt 20:13 r-mCnc Glucose BldC Glucomtr-mCnc (05-11-2013 12:20) Glucose 198 70-110 complet BldC 013 mg/dl ed Glucomt 12:20 r-mCnc Glucose BldC Glucomtr-mCnc (05-11-2013 06:09) Glucose 05-11- 165 70-110 complet BldC 013 mg/dl ed Glucomt 06:09 r-nc BASIC METABOLIC PANEL (05-11-2013 06:00) Glucose 178 [...] with AUTO DIFF (05-11-2013 06:00) WBC # 05-11- 16.7 4.8-10. complet Bld 013 K/MM3 8 ed Auto 06:00 RBC # 08-10-2 5.02 4.6-6.2 complet Bld 013 M/mm3 ed Auto 06:00 Hgb 08-10-2 15.6 14.1-18 complet Bld-mCn 013 g/dL .0 ed c 06:00 Hct Fr 10-2 46.1 % 42.0-52 complet Bld 013 .0 ed 06:00 MCV RBC 10-2 91.7 fl 82.2-97 complet 013 .8 ed 06:00 MCH RBC 10-2 31.2 pg 27-31.2 complet Qn 013 ed Auto 06:00 MEAN 08-10-2 34.0 31.8-35 complet CORPUSC 013 g/dl .4 ed ULAR 06:00 HGB CONC RDW RBC 10-2 14.0 % 11.5-17 complet Auto 013 .5 ed 06:00 Platele -10-2 148 142-424 complet t Bld 013 K/mm3 ed Ql 06:00 Manual MEAN 05-11-2 8.5 fl 7.4-10. complet PLATELE 013 4 ed T 06:00 VOLUME Granulo -10-2 88.2 % 37.0-80 complet cytes 013 .0 ed Fr Bld 06:00 Auto LYMPH % 08-10-2 3.7 % 10-50 complet 013 ed 06:00 Monocyt 08-10-2 7.7 % 1.7-9.3 complet es Fr 013 ed Bld 06:00 Auto Eosinop 08-10-2 0.1 % 0.1-12. complet hil Fr 013 0 ed Bld 06:00 Auto Basophi 08-10-2 0.2 % 0.1-2.0 complet ls Fr 013 ed Bld 06:00 Auto Granulo 08-10-2 14.8 1.3-8.0 complet cytes # 013 K/mm3 ed Bld 06:00 Auto Lymphoc 08-10-2 0.6 0.7-4.5 complet ytes Fr 013 K/mm3 ed Bld 06:00 Auto Monocyt 08-10-2 1.3 0.1-1.0 complet es # 013 K/mm3 ed Bld 06:00 Auto Eosinop 08-10-2 0.0 0.0-0.4 complet hil # 013 K/mm3 [...] with AUTO DIFF (05-10-2013 07:50) WBC # 05-10-2 11.0 4.8-10. complet Bld 013 K/MM3 8 ed Auto 07:50 RBC # 05-10-2 5.24 4.6-6.2 complet Bld 013 M/mm3 ed Auto 07:50 Hgb 16.0 14.1-18 complet Bld-mCn 013 g/dL .0 ed c 07:50 Hct Fr 48.4 % 42.0-52 complet Bld 013 .0 ed 07:50 MCV RBC 92.5 fl 82.2-97 complet 013 .8 ed 07:50 MCH RBC 30.6 pg 27-31.2 complet Qn 013 ed Auto 07:50 MEAN 33.0 31.8-35 complet CORPUSC 013 g/dl .4 ed ULAR 07:50 HGB CONC RDW RBC -09-2 13.7 % 11.5-17 complet Auto 013 .5 ed 07:50 Platele 08-09-2 155 142-424 complet t Bld 013 K/mm3 ed Ql 07:50 Manual MEAN -09-2 8.1 fl 7.4-10. complet PLATELE 013 4 [...] K/MM3 ed Bld 07:50 Auto Glucose BldC [facility] (05-10-2013 06:27) Glucose 05-10-2 154 70-110 complet BldC 013 mg/dl ed Glucomt 06:27 r-[facility] URINALYSIS/COMPLETE (05-09-2013 15:50) URINE YELLOW YELLOW complet COLOR 013 ed 15:50 URINE 2 CLEAR CLEAR complet APPEARA 013 ed NCE 15:50 URINE 2 NEGATIV NEG complet GLUCOSE 013 E ed - 15:50 DIPSTIC K URINE 0808-2 NEGATIV NEG complet BILIRUB 013 E ed IN - 15:50 DIPSTIC K URINE 0808-2 NEGATIV NEG complet KETONE 013 E mg/dL ed 15:50 URINE 0808-2 1.020 1.005-1 complet SPECIFI 013 UNK .030 ed C 15:50 GRAVITY URINE 08-2 TRACE-I NEG complet BLOOD 013 NTACT ed 15:50 URINE 08-2 6.0 UNK 5.0-8.5 complet PH 013 ed 15:50 URINE 08-2 NEGATIV NEG complet PROTEIN 013 E mg/dL ed - 15:50 DIPSTIC K URINE 08-2 1.0 NEG complet UROBILI 013 E.U./dL ed [...] 013 #/hpf ed S CELLS 15:50 URINE 08-2 TRACE O complet BACTERI 013 ed A 15:50 COMPREHENSIVE METABOLIC PANEL (05-09-2013 15:05) Glucose 08-2 144 74-106 complet 013 mg/dL ed Bld-mCn 15:05 c BUN 05-09- 20 7-18 complet Bld-mCn 013 mg/dL ed c 15:05 Creat 2 1.4 0.8-1.3 complet SerPl-m 013 mg/dL ed Cnc 15:05 ESTIMAT 2 53 50-200 complet ED 013 ML/MIN ed CREATIN 15:05 INE CLEARAN CE GFR 50 Greater complet (ESTIMA 013 ML/MIN than ed NYA) 15:05 60 Sodium 05-09- 139 136-145 complet SerPl-s 013 mmoL/L ed [...] g/dL .0 ed c 15:05 Hct Fr 44.2 % 42.0-52 complet Bld 013 .0 ed 15:05 MCV RBC 92.5 fl 82.2-97 complet 013 .8 ed 15:05 MCH RBC 30.7 pg 27-31.2 complet Qn 013 ed [...] Fr 013 ed Bld 15:05 Auto Eosinop 08-2 2.4 % 0.1-12. complet hil Fr 013 0 ed Bld 15:05 Auto Basophi 08-2 0.5 % 0.1-2.0 complet ls Fr 013 ed Bld 15:05 Auto Granulo 08-2 2.8 1.3-8.0 complet cytes # 013 K/mm3 ed Bld 15:05 Auto Lymphoc 08-2 2.6 0.7-4.5 complet ytes Fr 013 K/mm3 ed Bld 15:05 Auto Monocyt 08-2 0.5 0.1-1.0 complet es # 013 K/mm3 ed Bld 15:05 Auto Eosinop 08-2 0.2 0.0-0.4 complet hil # 013 K/mm3 ed Bld 15:05 Auto Basophi 08-2 0.0 0-0.2 complet ls # 013 K/MM3 ed Bld 15:05 Auto Procedures Procedure DOS Code Location Performer Comment ING 53.05 Adelfo HERNIA Nery REP-GRAFT NOS PART SM 45.62 Adelfo BOWEL Nery RESECT NEC Encounters Encounter Start End Date Code Location Performer Type Date Inpatient IMP Markell Watson ([place]) 3 16:08 3 13:00 [facility]
--- OUTSIDE RECORDS SUMMARY | 2017-08-04 11:24 | External Medical Summary Rpt | CCD ---
Author Author , ELIEZER Organization ELIEZER Address Unknown Phone [email or web address] Providers Care Printing Roller Handler Name Role Phone Suzanne SIMON, Unavailable Unavailable Suzanne Gabriel MD, Unavailable Unavailable Adelfo Gabriel MD Purpose Continuity of Care Document - 05-09-2013 through 2016 Problems Code Diagnosis DOS Provider Status 244.9 Hypothyroid [facility] 272.4 Hyperlipide [facility] 276.8 Hypokalemia [facility] 288.8 Leukocytosi [facility] 401.[address] [place] [address] 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 [id number] Chronic [facility] Allergies, Adverse Reactions, Alerts Type [...] TA B TO 00 08 5 No IN 18 -1 OL 61 1- Lo 08 [...] BL ET TO 00 08 1 No IN 18 -0 OL 61 9- Lo 08 [...] ed in 13:45 7.0% Blood Glucose BldC Glucomtr-[facility] (05-17-2013 06:45) Glucose 106 70-110 complet BldC 013 mg/dl ed Glucomt 06:45 r-[facility] Glucose BldC Glucomtr-mCnc (05-16-2013 20:32) Glucose 129 [...] complet BldC 013 mg/dl ed Glucomt 06:52 r-[facility] BASIC METABOLIC PANEL (05-12-2013 06:30) Glucose [...] K/MM3 ed Bld 07:50 Auto Glucose BldC Glu[facility]tr-[facility] (05-10-2013 06:27) Glucose 05-10-2 154 70-110 complet BldC 013 mg/dl ed Glucomt 06:27 r-[facility] URINALYSIS/COMPLETE (05-09-2013 15:50) URINE YELLOW YELLOW complet [...] Markell Watson ([place]) 3 16:08 3 13:00 [facility]
--- OUTSIDE RECORDS SUMMARY | 2017-08-04 11:25 | External Medical Summary Rpt | CCD ---
Author Author , ELIEZER MARTINS Address Unknown Phone [email or web address] Immunization Name Date Rout CVX Reac Dose Comm Prov Is Faci e tion ent ider Refu lity Give sed n Infl 10-2 Intr 135 0.5 Hist D049 No D049 uenz 8-20 amus mL oric 01 01 a, 17 cula al High r Info rmat Dose ion - Sour ce Unsp ecif ied
--- OUTSIDE RECORDS SUMMARY | 2017-08-04 11:25 | External Medical Summary Rpt | CCD ---
Author Author , ELIEZER MARTINS Address Unknown Phone [email or web address] Immunization Name Date Rout CVX Reac Dose Comm Prov Is Faci e tion ent ider Refu lity Give sed n Infl 10-2 Intr 135 0.5 Hist D049 No D049 uenz 8-20 amus mL oric 01 01 a, 17 cula al High r Info rmat Dose ion - Sour ce Unsp ecif ied
--- OUTSIDE RECORDS SUMMARY | 2017-08-04 11:26 | External Medical Summary Rpt ---
Author Author [facility] Doty, [employer] Organization [employer] Address Unknown Phone Unavailable Results Cardiac enzymes Observa Value Referen Units Interpr Notes Date tion ce etation Range Creatine 0 - 4.0 U/L Normal No Aug 04 kinase.MB informati 2016 /Creatine on in 10:05 AM source kinase.to data bc [Ratio] in Serum or Plasma Creatine 0.0 - 3.6 ng/mL Normal No Aug 04 kinase.MB informati 2016 on in 10:05 AM [Mass/vol source ume] in data Serum or Plasma Creatine 39 - 308 U/L Normal No Aug 04 kinase informati 2016 [Enzymati on in 10:05 AM c source activity/ data volume] in Serum or Plasma Troponin 0.00 - ng/mL Normal No Aug 04 I.cardiac 0.06 informati 2016 on in 10:05 AM [Mass/vol source ume] in data Serum or Plasma Comprehensive metabolic 2000 panel in Serum or Plasma Observa Value Referen Units Interpr Notes Date tion ce etation Range Albumin/G 1.1 - 1.8 No Low No Aug 04 lobulin informati informati 2016 [Mass on in on in 10:05 AM ratio] in source source Serum or data data Plasma Albumin 3.4 - 5.0 gm/dL Low No Aug 04 [Mass/vol informati 2016 ume] in on in 10:05 AM Serum or source Plasma data Alkaline 46 - 116 U/L High No Aug 04 phosphata informati 2016 se on in 10:05 AM [Enzymati source c data activity/ volume] in Serum or Plasma Bilirubin 0.2 - 1.0 mg/dL Normal No Aug 04 .total informati 2016 [Mass/vol on in 10:05 AM ume] in source Serum or data Plasma Urea 7 - 18 mg/dL Normal No Aug 04 nitrogen informati 2016 [Mass/vol on in 10:05 AM ume] in source Serum or data Plasma Calcium 8.5 - mg/dL Normal No Aug 04 [Mass/vol 10.1 informati 2016 ume] in on in 10:05 AM Serum or source Plasma data Chloride 98 - 107 mmoL/L Normal No Aug 3 [Moles/vo informati 2016 lume] in on in 10:05 AM Serum or source Plasma data Carbon 21.0 - mmoL/L Normal No Aug 04 dioxide, 32.0 informati 2016 total on in 10:05 AM [Moles/vo source lume] in data Serum or Plasma Creatinin 0.70 - mg/dL Normal No Aug 04 e 1.30 informati 2016 [Mass/vol on in 10:05 AM ume] in source Serum or data Plasma Creatinin 50 - 200 ML/MIN Normal No Aug 04 e renal informati 2017 clearance on in 10:05 AM source predicted data by Cockcroft -Gault formula Estimated >60 ML/MIN No REFERENCE Aug 04 inform RANGE: 2017 glomerula on in >60 10:05 AM r source ML/MIN/1. filtratio data 73 SQUARE n rate METERSIf (GF this patient is -A merican, then multiply theresult by 1.210. Globulin 1.3 - 3.2 gm/dL High No Aug 04 [Mass/vol informati 2016 ume] in on in 10:05 AM Serum source data Glucose 74 - 106 mg/dL Normal Aug 04 [Mass/vol informati 2016 ume] in on in 10:05 AM Serum or source Plasma data Potassium 3.5 - 5.1 mmoL/L Normal No Aug 042016 [Moles/vo on in 10:05 AM lume] in source Serum or data Plasma Sodium 136 - 145 mmoL/L Normal Aug 04 [Moles/vo informati 2016 lume] in on in 10:05 AM Serum or source Plasma data Aspartate 15 - 37 U/L Normal No Aug 042016 aminotran on in 10:05 AM sferase source [Enzymati data c activity/ volume] in Serum or Plasma Alanine 12 - 78 U/L Low No Aug 04 aminotran 2016 sferase on in 10:05 AM [Enzymati source c data activity/ volume] in Serum or Plasma Protein 6.4 - 8.2 gm/dL Normal No Aug 04 [Mass/vol informati 2016 ume] in on in 10:05 AM Serum or source Plasma data Lipase [Enzymatic activity/volume] in Serum or Plasma Observa Value Referen Units Interpr Notes Date tion ce etation Range Lipase 73 - 393 U/L Normal No Aug 3 [Enzymati 2016 c on in 10:05 AM activity/ source volume] data in Serum or Plasma CBC W Auto Differential panel in Blood Observa Value Referen Units Interpr Notes Date tion ce etation Range Basophils 0 - 0.2 K/MM3 Normal No Nov 3 2016 [#/volume on in 10:05 AM ] in source Blood by data Automated count Basophils 0.1 - 2.0 % Normal No Nov 3 /100 2016 leukocyte on in 10:05 AM s in source Blood by data Automated count Eosinophi 0.0 - 0.4 K/mm3 Normal No Aug 3 ls 2016 [#/volume on in 10:05 AM ] in source Blood by data Automated count Eosinophi 0.1 - % Normal No Aug 3 ls/100 12.0 2016 leukocyte on in 10:05 AM s in source Blood by data Automated count Granulocy 1.3 - 8.0 K/mm3 Normal No Aug 3 anisa 2016 [#/volume on in 10:05 AM ] in source Blood by data Automated count Granulocy 37.0 - % Normal No Aug 3 anisa/100 80.0 2016 leukocyte on in 10:05 AM s in source Blood by data Automated count Hematocri 42.0 - % Low No Aug 3 t [Volume 52.0 2016 on in 10:05 AM Fraction] source of Blood data Hemoglobi 14.1 - g/dL Low No Aug 3 n 18.0 2016 [Mass/vol on in 10:05 AM ume] in source Blood data Lymphocyt 0.7 - 4.5 K/mm3 Normal No Aug 3 es 2016 [#/volume on in 10:05 AM ] in source Unspecifi data ed specimen by Automated count Lymphocyt 10 - 50 % Normal No Aug 3 es 2016 [#/volume on in 10:05 AM ] in source Unspecifi data ed specimen by Automated count Erythrocy 27 - 31.2 pg Normal No Aug 3 te mean 2016 corpuscul on in 10:05 AM ar source hemoglobi data n [Entitic mass] Erythrocy 31.8 - g/dl Normal No Aug 3 te mean 35.4 2016 corpuscul on in 10:05 AM ar source hemoglobi data n concentra tion [Mass/vol ume] by Automated count Erythrocy 82.2 - fl Normal No Aug 3 te mean 97.8 2016 corpuscul on in 10:05 AM ar volume source [Entitic data volume] by Automated count Monocytes 0.1 - 1.0 K/mm3 Normal No Aug 3 2016 [#/volume on in 10:05 AM ] in source Blood by data Automated count Monocytes 1.7 - 9.3 % High No Aug 3 /100 inform 2017 leukocyte on in 10:05 AM s in source Blood by data Automated count Platelet 7.4 - fl Normal No Aug 3 mean 10.4 2016 volume on in 10:05 AM [Entitic source volume] data in Blood by Automated count Platelets 142 - 424 K/mm3 Normal No Aug 3 2016 [#/volume on in 10:05 AM ] in source Blood data Erythrocy 4.6 - 6.2 M/mm3 Low No Aug 3 anisa inform2016 [#/volume on in 10:05 AM ] in source Amniotic data fluid Erythrocy 11.5 - % Normal No Aug 04 te 17.5 2016 distribut on in 10:05 AM ion width source [Entitic data volume] by Automated count Leukocyte 4.8 - K/MM3 Low No Aug 3 s 10.8 2016 [#/volume on in 10:05 AM ] in source Blood data Comprehensive metabolic 2000 panel in Serum or Plasma Observa Value Referen Units Interpr Notes Date tion ce etation Range Albumin/G 1.1 - 1.8 No Low No Mar 20 lobulin informati informati 2016 1:45 [Mass on in on in PM ratio] in source source Serum or data data Plasma Albumin 3.4 - 5.0 gm/dL Low No Mar 20 [Mass/vol informati 2016 1:45 ume] in on in PM Serum or source Plasma data Alkaline 46 - 116 U/L High No Mar 20 phosphata informati 2016 1:45 se on in PM [Enzymati source c data activity/ volume] in Serum or Plasma Bilirubin 0.2 - 1.0 mg/dL Normal No Mar 20 .total informati 2016 1:45 [Mass/vol on in PM ume] in source Serum or data Plasma Urea 7 - 18 mg/dL Normal No Mar 20 nitrogen informati 2016 1:45 [Mass/vol on in PM ume] in source Serum or data Plasma Calcium 8.5 - mg/dL Normal No Mar 20 [Mass/vol 10.1 informati 2016 1:45 ume] in on in PM Serum or source Plasma data Chloride 98 - 107 mmoL/L Normal No Mar 20 [Moles/vo informati 2016 1:45 lume] in on in PM Serum or source Plasma data Carbon 21.0 - mmoL/L Normal No Mar 20 dioxide, 32.0 informati 2016 1:45 total on in PM [Moles/vo source lume] in data Serum or Plasma Creatinin 0.70 - mg/dL Low No Mar 20 e 1.30 informati 2016 1:45 [Mass/vol on in PM ume] in source Serum or data Plasma Estimated >60 ML/MIN No REFERENCE Mar 20 informati RANGE: 2017 1:45 glomerula on in [...] 3.5 - 5.1 mmoL/L Normal No Mar 20 inform2016 1:45 [Moles/vo on in PM lume] in source Serum or data Plasma Sodium 136 - 145 mmoL/L Normal No Mar 20 [Moles/vo informati 2016 1:45 lume] in on in PM Serum or source Plasma data Aspartate 15 - 37 U/L Low No Mar 20 informati 2016 1:45 aminotran on in PM sferase source [Enzymati data c activity/ volume] in Serum or Plasma Alanine 12 - 78 U/L Normal No Mar 20 aminotran informati 2016 1:45 sferase on in PM [Enzymati [...] 0 - 0.2 K/MM3 Normal No Mar 19 inform2016 1:45 [#/volume on in PM ] in source Blood by data Automated count Basophils 0.1 - 2.0 % Normal No Mar 19 /100 informati 2016 1:45 leukocyte on in PM s in source Blood by data Automated count Eosinophi 0.0 - 0.4 K/mm3 Normal No Mar 20 ls informati 2016 [...] No Mar 20 t [Volume 52.0 informati 2016 1:45 on in PM Fraction] source of Blood data Hemoglobi 14.1 - g/dL Low No Mar 20 n 18.0 informati 2016 1:45 [Mass/vol on in PM ume] in source Blood data Lymphocyt 0.7 - 4.5 K/mm3 Normal No Mar 20 es inform2016 1:45 [#/volume on in PM ] in source Unspecifi data ed specimen by Automated count Lymphocyt 10 - 50 % Normal No Mar 20 es 2016 1:45 [#/volume on in PM ] [...] No Mar 20 te mean 97.8 informati 2016 1:45 corpuscul on in PM ar volume source [Entitic data volume] by Automated count Monocytes 0.1 - 1.0 K/mm3 Normal No Mar 20 inform2016 1:45 [#/volume on in PM ] in source Blood by data Automated count Monocytes 1.7 - 9.3 % Normal No Mar 20 informati 2016 1:45 leukocyte on in PM s in source Blood by data Automated count Platelet 7.4 - fl Normal No Mar 20 mean 10.4 informati 2016 1:45 volume on in PM [Entitic source volume] data in Blood by Automated count Platelets 142 - 424 K/mm3 No No Mar 20 informati informati 2017 1:45 [#/volume on in on in PM ] in source source Blood data data Erythrocy 4.6 - 6.2 M/mm3 Low No Mar 20 anisa informati 2016 1:45 [#/volume on in PM ] in source Amniotic data fluid Erythrocy 11.5 - % Normal No Mar 20 te 17.5 informati 2016 1:45 distribut on in PM ion width source [Entitic data volume] by Automated count Leukocyte 4.8 - K/MM3 Low No Mar 20 s 10.8 informati 2016 1:45 [#/volume on in PM [...] - 9 % Normal No Mar 20 informati 2016 1:45 leukocyte on in PM s in source Blood by data Automated count Platele NORMAL No No No No Mar 20 ts informa informa informa informa 2016 [Presen tion in tion in tion in [...] 6% Mar 20 bin A1c 7.0 NON-RODOLFO 2016 in BETIC 1:45 PM Blood LEVEL< 7% CONTROL LED DIABETI C LEVEL> 8% POORLY CONTROL LED DIABETI C LEVEL
--- NOTE | 2017-08-04 13:13 | HISTORY AND PHYSICAL REPORT ---
History and Physical ([facility]) Date of admission: 08/04/17 Chief complaint: abdominal and chest pain History: History of Present Illness: Mr. Romero is a 76yo male with a hx of HTN, HLP, BPH, DM, ASCVD, and Parkinsons. He states yesterday am he began having pain whenever he would eat and drink. The pain started in his epigastric area and radiated to his chest. He denies any nause or vomiting. He states he has had a hard time having a BM but they have been regular and he had one yesterday. He was evaluated in the ER and admitted for observation. Past Medical History: Medical History: CAD? Yes Angina: Yes NV: Yes Hypertension? Yes Hyperlipidemia? Yes CHF? No DVT? Yes PE? No COPD? No Asthma? No Anemia? Yes GERD? No Gastric ulcers? No Hernia? Yes Thyroid Problems? Yes Hypothyroidism? Yes CVA? No Seizures? No Diabetes? Yes Insulin Dependent: Yes Insulin Pump: No Home FSBS? No UTI? No Stones? No GB Disease: Yes Nephritic Syndrome? No Asplenia? No Hepatitis? No Sickle Cell Disease? No Arthritis? Yes Cataracts? No Glaucoma? No TB? No Depression? Yes Cancer? No More? Yes Additional hx: 1. PARKINSON'S DISEASE 2. Lumbar spinal stenosis 3. Peripheral neuropathy 4. 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 Social History: Smoking Hx Tobacco: No Smoker: Former Smoker Type: Cigarettes Packs/day: N/A Are you exposed to second hand No Alcohol: Alcohol: No Hx of Drug Use: Drug Use? No Review of Systems: Constitutional No: fatigue, lethargy, malaise, weak. ENT Positive for: nasal congestion. No: sore throat. Cardiovascular Positive for: chest pain, edema. No: palpitations. Respiratory No: shortness of air, productive cough (sputum), wheezing. GI Positive for: abdominal pain (epigastric), constipation. No: diarrhea, nausea, vomitting. (male) No: frequency, hematuria. Neurological Positive for: weakness. No: dizziness, headache, syncope. Musculoskeletal No: extremity pain, joint pain, myalgias. Physical Exam: Vital signs: 1ST Vital Signs Result Date Time Pulse Ox 100 08/04 1003 B/P 140/83 08/04 1003 Temp 98.0 08/04 1003 Pulse 69 08/04 1003 Resp 18 08/04 1003 Exam: General appearance: alert, awake, no acute distress Eyes: EOM's w/normal ROM, PERRLA ENT: mucous membranes moist, nose normal, pharynx normal Neck: non-tender, full range of motion, supple Cardiovascular: regular rate & rhythm ABD: non-distended, normal bowel sounds, no rebound, soft, no guarding, ttp in the epigastric area Extremities: 2+ pretibial edema bilaterally Musculoskeletal: equal muscle strength (weak bilaterally), motor intact, sensation intact Skin: normal color Neuro: normal mood/affect, oriented, speech clear Lab data: Labs: Laboratory Tests 08/04/17 1210: POC Glucose 91 08/04/17 1005: Lipase 97 08/04/17 1005: Sodium 136, Potassium 3.9, Chloride 102, Carbon Dioxide 29, BUN 12, Creatinine 0.8, Estimated Creat Clear 92, Estimated GFR (MDRD) 94, Glucose 96, Calcium 8.8, Total Bilirubin 0.9, AST 19, ALT 8 L, Alkaline Phosphatase 166 H, Creatine Kinase 86, CK-MB (CK-2) Rel Index 1.9, CK and CKMB Interp 1.6, Troponin I 0.02, Total Protein 7.0, Albumin 2.9 L, Globulin 4.1 H, Albumin/Globulin Ratio 0.7 L, WBC 3.9 L, RBC 3.48 L, Hgb 10.4 L, Hct 32.7 L, MCV 94.1, RDW 16.6, Plt Count 225, MPV 7.8, Gran % 68.5, Gran # 2.7, Lymphocytes % 18.9, Monocytes % 9.8 H, Eosinophils % 2.3, Basophils % 0.5, Lymphocytes # 0.7, Monocytes # 0.4, Eosinophils # 0.1, Basophils # 0.0, PUBS MCHC 31.8, MCH 30.0 Radiology results: Results: CXR - nothing acute Diagnosis(es): 1. Precordial chest pain Status: Acute 2. Epigastric pain Status: Acute 3. ASCVD (arteriosclerotic cardiovascular disease) 4. Physical debility 5. Elevated alkaline phosphatase level 6. Parkinson disease 7. CAD (coronary artery disease) 8. Hypothyroidism Status: Chronic 9. Diabetes mellitus type 2 Status: Chronic 10. Hyperlipidemia Status: Chronic 11. Benign essential hypertension Status: Chronic Plan: Pt was admitted for serial cardiac enzymes and EKG's. This seems to be more GI in nature. Will discuss with Dr. Watson. May need to try a GI cocktail. (Flo SIMON,Suzanne) Date of admission: 08/04/17 History: History of Present Illness: His hx with me is different than above stating he started having epigastric pain last night after eating cabbage for supper. He rested fairly well but pain started again about 6:30 this morning therefore he was brought to the ER. Workup in the ER was negative. He was admitted for serial enzymes. Past Medical History: Medications: Active Scripts Omeprazole (Omeprazole 40MG) 40 MG PO DAILY #30 ECC Prov: 12/08/16 Cyanocobalamin (Vitamin B-12) (Vitamin B12) 2,500 MCG PO DAILY #30 TAB Prov: 12/08/16 Tramadol Hcl (Tramadol 50MG) 50 MG PO Q4HP PRN MODERATE PAIN #60 TABLET Prov: 12/08/16 Apixaban (Eliquis) 5 MG PO BID #60 TAB Prov: 12/08/16 Reported Medications Levothyroxine Sodium (Synthroid 0.112MG) 0.112 MG PO DAILY Citalopram Hydrobromide (Citalopram HBr) 10 MG PO DAILY #30 TAB Ferrous Sulfate (Ferrous Sulfate 325MG) 325 MG PO DAILY Rosuvastatin Calcium 20 MG PO DAILY #30 TAB METFORMIN HCL (Metformin HCl ER) 500 MG PO DAILY #30 TAB Carbidopa/Levodopa (Carbidopa-Levodopa 25-100 Tab) 2 TAB PO TID #180 TAB Gabapentin (Gabapentin 400MG Capsule) 400 MG PO TID #90 CAPSULE Finasteride 5 MG PO DAILY #30 TAB Quetiapine Fumarate 25 MG PO BID #60 TAB Insulin Detemir (Levemir Flextouch) 10 SC NIGHTLY #15 ASPIRIN (Aspirin) 81 MG PO DAILY Diagnosis(es): 1. Precordial chest pain Status: Acute 2. Epigastric pain Status: Acute 3. ASCVD (arteriosclerotic cardiovascular disease) 4. Physical debility 5. Elevated alkaline phosphatase level 6. Parkinson disease 7. CAD (coronary artery disease) 8. Hypothyroidism Status: Chronic 9. Diabetes mellitus type 2 Status: Chronic 10. Hyperlipidemia Status: Chronic 11. Benign essential hypertension Status: Chronic Plan: At the time of my evaluation tonight, he is sitting up in bed eating supper. He has had no further epigastric or chest pain since admission to the floor. Denies SOA or nausea. Exam is unchanged from above. Will proceed with serial enzymes and observation over night. He will be continued on most of his home meds. Additional w/u and treatment will be as indicated by his hospital course. (Yon Watson MD) at 1313 at 1810
--- NOTE | 2017-08-04 13:56 | PHARMACY CLINIC NOTE ---
Patient Demographics Patient Demographics Admission date: 08/04/17 Date: 08/04/17 Time: 1356 Allergies Coded Allergies: No Known Allergies (12/05/16) HEIGHT- FT: 5 IN: 10.00 K.282 VTE General Information Labs: Laboratory Tests 08/04 1005 Hematology Hgb (14.1 - 18.0 g/dL) 10.4 L Hct (42.0 - 52.0 %) 32.7 L Plt Count (142 - 424 K/mm3) 225 Disclaimer The following section includes nursing documentation that has been pulled in for pharmacy review. Patient's VTE score: 3 Patient's VTE Risk: LOW RISK Clinical trial participant? No VTE prophylaxis NQF [id number] VTE prophylaxis ordered? No (PATIENT ALREADY ON [facility] HERE) at [id number]
[2017-08-05 04:31] VITALS: BP 124/64
[2017-08-05 08:00] VITALS: BP 97/58
--- NOTE | 2017-08-05 08:55 | ACUTE CARE PROGRESS NOTE (QUA) ---
Progress Notes Subjective Date 08/05/17 Time 0848 Note Rested well through the night. Eating OK. No further chest pain or abdominal pain. No SOA or nausea. Objective Findings Laboratory Tests 08/05/17 0623: POC Glucose 92 08/04/17 2058: Troponin I 0.02 08/04/17 1959: POC Glucose 102 08/04/17 1700: POC Glucose 97 08/04/17 1655: Troponin I 0.02 08/04/17 1324: Troponin I 0.02 08/04/17 1210: POC Glucose 91 08/04/17 1005: Lipase 97 08/04/17 1005: Sodium 136, Potassium 3.9, Chloride 102, Carbon Dioxide 29, BUN 12, Creatinine 0.8, Estimated Creat Clear 92, Estimated GFR (MDRD) 94, Glucose 96, Calcium 8.8, Total Bilirubin 0.9, AST 19, ALT 8 L, Alkaline Phosphatase 166 H, Creatine Kinase 86, CK-MB (CK-2) Rel Index 1.9, CK and CKMB Interp 1.6, Troponin I 0.02, Total Protein 7.0, Albumin 2.9 L, Globulin 4.1 H, Albumin/Globulin Ratio 0.7 L, WBC 3.9 L, RBC 3.48 L, Hgb 10.4 L, Hct 32.7 L, MCV 94.1, RDW 16.6, Plt Count 225, MPV 7.8, Gran % 68.5, Gran # 2.7, Lymphocytes % 18.9, Monocytes % 9.8 H, Eosinophils % 2.3, Basophils % 0.5, Lymphocytes # 0.7, Monocytes # 0.4, Eosinophils # 0.1, Basophils # 0.0, PUBS MCHC 31.8, MCH 30.0 Last VS-Temp:98.0 B/P:97/58 Pulse:75 Resp:18 SaO2:98 ROOM AIR Last weight lbs:170 oz:6 K.282 Method:Bed Scales Exam General appearance: alert, no acute distress Eyes: anicteric ENT: mucous membranes moist Cardiovascular: regular rate & rhythm Respiratory: clear to auscultation ABD: normal bowel sounds, soft, no tenderness Assessment/Plan Problem List 1. Precordial chest pain Status: Acute Assessment/Plan NV ruled out 2. Epigastric pain Status: Acute 3. ASCVD (arteriosclerotic cardiovascular disease) 4. Physical debility 5. Elevated alkaline phosphatase level 6. Parkinson disease 7. CAD (coronary artery disease) 8. Hypothyroidism Status: Chronic 9. Diabetes mellitus type 2 Status: Chronic 10. Hyperlipidemia Status: Chronic 11. Benign essential hypertension Status: Chronic Plan: Stable for discharge home. Continue same meds. If he has recurring symptoms, may need further GI w/u as outpt. This inpt stay is expected to cross 2 MNs from start of care No at [phone]
[2017-08-05 11:12] VITALS: BP 97/58
--- NOTE | 2017-08-08 13:54 | DISCHARGE SUMMARY STANDARD ---
Discharge Summary ([facility]2) Date of admission: 08/04/17 Date of discharge: 08/05/17 Problem List: 1. Precordial chest pain 2. Epigastric pain 3. ASCVD (arteriosclerotic cardiovascular disease) 4. Physical debility 5. Elevated alkaline phosphatase level 6. Parkinson disease 7. CAD (coronary artery disease) 8. Hypothyroidism 9. Diabetes mellitus type 2 10. Hyperlipidemia 11. Benign essential hypertension History of present illness: Mr. Romero is a 76yo male with a hx of HTN, HLP, BPH, DM, ASCVD, and Parkinsons. He stated the day prior to admission he began having pain whenever he would eat and drink. The pain started in his epigastric area and radiated to his chest. He denied any nause or vomiting. He stated he had had a hard time having a BM but they have been regular and he had one the day prior to admission. He was evaluated in the ER and admitted for observation. Exam on admission: General appearance: alert, awake, no acute distress Eyes: EOM's w/normal ROM, PERRLA ENT: mucous membranes moist, nose normal, pharynx normal Neck: non-tender, full range of motion, supple Cardiovascular: regular rate & rhythm ABD: non-distended, normal bowel sounds, no rebound, soft, no guarding, ttp in the epigastric area Extremities: 2+ pretibial edema bilaterally Musculoskeletal: equal muscle strength (weak bilaterally), motor intact, sensation intact Skin: normal color Neuro: normal mood/affect, oriented, speech clear Hospital Course: The patient was admitted for serial cardiac enzymes. He was given a GI cocktail and by the evening, he was sitting up in bed eating supper. He had had no further epigastric or chest pain since admission to the floor. He did well throughout the night. Enzymes were negative, he was asymptomatic, and an KS was ruled out. He was stable to be discharged home. Discharge medications: Stop taking the following medications: Insulin Detemir (Levemir Flextouch) 100 UNIT/1 ML INSULN.PEN Subcutaneous Injection NIGHTLY Qty = 15 Continue taking these medications: Levothyroxine Sodium (Synthroid 0.112MG) 112 MCG TABLET 0.112 MILLIGRAM ORAL DAILY Citalopram Hydrobromide (Citalopram HBr) 10 MG TABLET 10 MILLIGRAM ORAL DAILY Qty = 30 Ferrous Sulfate (Ferrous Sulfate 325MG) 325 MG TABLET 325 MILLIGRAM ORAL DAILY Rosuvastatin Calcium (Rosuvastatin Calcium) 20 MG TABLET 20 MILLIGRAM ORAL DAILY Qty = 30 METFORMIN HCL (Metformin HCl ER) 500 MG TAB.ER.24H 500 MILLIGRAM ORAL DAILY Qty = 30 Carbidopa/Levodopa (Carbidopa-Levodopa 25-100 Tab) 1 EACH TABLET 2 TABLET ORAL THREE TIMES A DAY Qty = 180 Gabapentin (Gabapentin 400MG Capsule) 400 MG CAPSULE 400 MILLIGRAM ORAL THREE TIMES A DAY Qty = 90 Finasteride (Finasteride) 5 MG TABLET 5 MILLIGRAM ORAL DAILY Qty = 30 Quetiapine Fumarate (Quetiapine Fumarate) 25 MG TABLET 25 MILLIGRAM ORAL TWICE A DAY Qty = 60 Omeprazole (Omeprazole 40MG) 40 MG CAPSULE.DR 40 MILLIGRAM ORAL DAILY Qty = 30 Cyanocobalamin (Vitamin B-12) (Vitamin B12) 2,500 MCG TABLET 2,500 MICROGRAM ORAL DAILY Qty = 30 Tramadol Hcl (Tramadol 50MG) 50 MG TABLET 50 MILLIGRAM ORAL EVERY 4 HOURS NEEDED as needed for MODERATE PAIN Qty = 60 Apixaban (Eliquis) 5 MG TABLET 5 MILLIGRAM ORAL TWICE A DAY Qty = 60 ASPIRIN (Aspirin) 81 MG TAB.CHEW 81 MILLIGRAM ORAL DAILY Disposition: f/u with: Yon Watson MD Follow up: 2 WEEKS Activity: Cont Current activity Diet: Continue same diet Discharge to: HOME Agency needed? N at [id number]
== END 2017-08-05 11:05 | disposition home or self-care (01) ==
LOC: ER 10:02 → 2ND 11:18 → ER 11:18 → 2ND 12:07
PROVIDERS: Emergency Medicine
DX: R07.2 Precordial pain (principal); R10.13 Epigastric pain; I25.10 Atherosclerotic heart disease of native coronary artery without angina pectoris; R74.8 Abnormal levels of other serum enzymes; G20 Parkinson's disease; E11.42 Type 2 diabetes mellitus with diabetic polyneuropathy; E03.9 Hypothyroidism, unspecified; E78.5 Hyperlipidemia, unspecified; I10 Essential (primary) hypertension; Z79.82 Long term (current) use of aspirin; Z79.4 Long term (current) use of insulin; Z79.899 Other long term (current) drug therapy; K59.00 Constipation, unspecified; I25.2 Old myocardial infarction; D64.9 Anemia, unspecified; Z86.718 Personal history of other venous thrombosis and embolism; Z87.891 Personal history of nicotine dependence; Z95.0 Presence of cardiac pacemaker; Z95.5 Presence of coronary angioplasty implant and graft; Z83.3 Family history of diabetes mellitus; Z82.49 Family history of ischemic heart disease and other diseases of the circulatory system; Z83.49 Family history of other endocrine, nutritional and metabolic diseases
CPT/HCPCS: G0378